=== PATIENT | female | born 1950 | race Caucasian/White ===

== ENCOUNTER → 2016-09-21 | Outpatient (CLI) | payer BC ==
[~2016-09-21] MED LIST: CLB/200 PO
--- NOTE | 2016-09-21 10:15 | DIAGNOSTIC IMAGING REPORT ---
ULTRASOUND ABDOMINAL WALL CLINICAL HISTORY: Right lower quadrant and umbilical pain. Clinical concern for hernia. COMPARISON STUDY: Abdominal CT dated 05/11/2010. EYES: Real-time grayscale sonography of the right lower quadrant abdominal wall as well as the umbilical region is performed at the indicator site of interest. No hernia is identified. No hernia could be elicited by having the patient perform the Valsalva maneuver. No concerning mass lesion or fluid collection is identified in this region. IMPRESSION: There is no sonographic evidence of abdominal wall hernia at the site of interest as clinically queried. Electronically signed by: Scott Ortega M.D. 09/21/2016 10:12 AM Dictated Date/Time: 09/21/2016 10:11 AM
--- NOTE | 2016-09-21 10:15 | DIAGNOSTIC IMAGING REPORT ---
BILIARY ULTRASOUND CLINICAL HISTORY: Gallbladder polyp COMPARISON STUDY: 09/20/2015 FINDINGS: The pancreas appears sonographically normal. The liver appears sonographically normal. The gallbladder appears sonographically normal. No gallbladder polyps are visualized on today's study. There is no ductal dilatation. The common bile duct measures 3 mm. The right kidney reveals no evidence of hydronephrosis. There is a suspected duplex collecting system. IMPRESSION: Normal study. Electronically signed by: Abdulkadir Pittman M.D. 09/21/2016 10:13 AM Dictated Date/Time: 09/21/2016 10:11 AM
== END | disposition home or self-care (01) ==
LOC: C.ULTR 09:15
PROVIDERS: ATTEND Surgery
DX: K82.4 Cholesterolosis of gallbladder (principal); R10.31 Right lower quadrant pain; R10.33 Periumbilical pain

== ENCOUNTER → 2017-07-31 | Outpatient (CLI) | payer BC ==
--- NOTE | 2017-07-31 15:15 | MAMMOGRAPHY REPORT ---
BILATERAL DIGITAL SCREENING MAMMOGRAM TOMOSYNTHESIS WITH CAD: 07/31/2017 CLINICAL HISTORY: Routine screening. Patient has no complaints. TECHNIQUE: Breast tomosynthesis in addition to standard 2D mammography was performed. Current study was also evaluated with a Computer Aided Detection (CAD) system. COMPARISON: Comparison is made to exams dated: 05/26/2015 mammogram, 05/19/2010 ultrasound, 05/19/20 10 mammogram, 07/15/2001 mammogram, and 05/30/2004 mammogram - [facility]. BREAST COMPOSITION: There are scattered areas of fibroglandular density in both breasts. FINDINGS: The parenchymal pattern is unchanged. No developing mass, architectural distortion or clus ter of suspicious microcalcifications is seen in either breast. IMPRESSION: ACR BI-RADS CATEGORY 2: BENIGN There is no mammographic evidence of malignancy. A 1 year screening mammogram is recommended. The pa tient will receive written notification of the results. Approximately 10% of breast cancers are not detected with mammography. A negative mammographic report should not delay biopsy if a clinically suggestive mass is present. Ame Dow M.D. ay/:07/31/2017 09:12:35 Academic Dean: Yasmine GRAHAMR, M, [facility] letter sent: Normal 1/2 BI-RADS Code: ACR BI-RADS Category 2: Benign
== END | disposition home or self-care (01) ==
LOC: C.MAMM 08:32
PROVIDERS: ATTEND Family Medicine
DX: Z12.31 Encounter for screening mammogram for malignant neoplasm of breast (principal)

== ENCOUNTER 2021-07-26 22:43 | Observation (INO) ==
[2021-07-26] MEDS ORDERED: STAT IV Infusion **Titration per Protocol STA (23:21)
[2021-07-26] MEDS ORDERED: dilTIAZem HCl 5 MG/ML 5 ML VIAL IV STA (23:21)
[2021-07-26 23:29] LABS: Basophils # (auto) 0.02 K/uL (0-0.2); Basophils % (auto) 0.3 %; Eosinophils # (auto) 0.25 K/uL (0-0.5); Eosinophils % (auto) 3.5 %; Hematocrit (blood only) 43.5 % (37-47); Hemoglobin 14.1 g/dL (12.0-16.0); Immature Granulocytes # (auto) 0.01 K/uL (0.00-0.02); Immature Granulocytes % (auto) 0.1 %; Lymphocytes # (auto) 2.85 K/uL (1.2-3.4); Lymphocytes % (auto) 40.3 %; Mean Corpuscular Hemoglobin 32.7 pg (25-34); Mean Corpuscular Hgb Conc 32.4 g/dL (32-36); Mean Corpuscular Volume 100.9 fL (80-100); Mean Platelet Volume 9.8 fL (7.4-10.4); Monocytes # (auto) 0.68 K/uL (0.11-0.59); Monocytes % (auto) 9.6 %; Neutrophils # (auto) 3.27 K/uL (1.4-6.5); Neutrophils % (auto) 46.2 %; Platelet Count 161 K/uL (130-400); RDW Coefficient of Variation 13.3 % (11.5-14.5); RDW Standard Deviation 49.8 fL (36.4-46.3); Red Blood Count 4.31 M/uL (4.2-5.4); White Blood Count 7.08 K/uL (4.8-10.8)
[2021-07-26] MEDS ORDERED: dilTIAZem HCL 125 MG in DEXTROSE 5% 100 ML IV SCH (23:30)
[2021-07-26] MEDS ORDERED: ASPIRIN 81 MG CHEW PO STA (23:33)
[2021-07-26] MEDS ORDERED: MAGNESIUM SULFATE / D5W 1 GM/100 ML BAG IV SCH (23:33)
--- NOTE | 2021-07-26 23:37 | Emergency Department Note ---
Impression & Plan Atrial fibrillation with rapid ventricular response, Cognitive impairment, Chest pressure ED Provider Note Provider: Darian Connor MD DATE OF SERVICE: 07/26/2021 CHIEF COMPLAINT: Chest pressure, irregular heart rate HISTORY OF PRESENT ILLNESS: Patient is a 71-year-old female history of cognitive impairment and hyperlipidemia presenting here today brought by her development this evening an hour or 2 prior to arrival of some chest pressure. Has been noted her blood pressure was normal at home as was her pulse ox but her heart rate was irregular and quite fast. Patient and both deny any history of irregular heart rate or atrial fibrillation. Patient reportedly normally has somewhat slow heart rate in the 50s. Patient is not on any significant blood pressure medication by report. Patient denies any chest pain or pressure now and states it resolved upon arriving here. Patient denies any falls or trauma. She denies any recent illnesses or fevers. REVIEW OF SYSTEMS: A total of 10 review of systems was obtained and negative except as stated above in the HPI. PAST MEDICAL HISTORY: As noted above MEDICATIONS: Reviewed home medications SOCIAL HISTORY: Lives at home with PHYSICAL EXAM: GENERAL: alert and oriented in no acute distress on stretcher Head: normocephalic and atraumatic EYES: No injection, discharge or icterus. NECK: Trachea midline. ENT: Mucous membranes pink and moist. LUNGS: Airway patent. No retractions. Breath sounds clear with good air entry bilaterally. HEART: Tachycardic irregular irregular rate and rhythm. No chest wall tenderness ABDOMEN: Soft and non-tender, without guarding or rebound. SKIN: Acyanotic, warm, dry, without rashes EXTREMITIES: Without swelling, tenderness or deformity NEUROLOGICAL: No focal deficits. No aphasia. No facial droop or slurred speech. Ambulatory. EK bpm atrial fibrillation with rapid ventricular response. Some inferior and lateral slight ST depression. No acute ST segment elevation noted. QTc 335 but stable be estimated. Compared to previous available from the beginning of the month no longer bradycardic and now with what appears to be atrial fibrillation CONTINUOUS CARDIAC MONITORING: was ordered and showed a heart rate of 110s-200s bpm in atrial fibrillation Patient's laboratory studies and imaging reviewed. Differential includes Premature contractions, electrolyte abnormality, cardiac dysrhythmia, thyroid dysfunction, pulmonary embolism, infection, gastr ointestinal, as well as other pathologies. IMPRESSION/MEDICAL DECISION MAKING: Patient was off chest pressure. No significant cardiac history. Patient with what appears to be new onset rapid atrial fibrillation. Some lateral and inferior ST depression changes likely demand related due to her rate. Given some diltiazem and diltiazem drip started. Aspirin given. Magnesium ordered. Basic labs electrolytes and thyroid function ordered. Chest x-ray completed although low suspicion for pulmonary pathology at this time. Patient not hypoxic. Patient resting comfortably in bed even with a significantly fast heart rate. No evidence of heart failure at this time. Discussed with patient findings. Discussed need for further care here at the hospital. Hospitalist contacted. Patient with increasing dose of Cardizem drip with some difficulty with rate control. DIAGNOSIS: Rapid atrial fibrillation, chest pressure DISPOSITION: Hospitalist will evaluate Patient was agreeable with this plan. Critical Care I have personally spent 31 minutes of critical care time in the direct management of this patient. This includes bedside care, interpretation of diagnostic studies, and testing, discussion with consultants, patient, and family members, and other required patient management activities. These 31 minutes is in excess of all separately billable procedures. Past Med/Surg History Medical History Acid reflux ? DX OF, EXPERIENCES FREQUENT NAUSEA - PCP MONITORS Balance problem EVAL WITH [facility]/CLARE CONNOR JUN 08 2020 - CURRENT PT FOR - NEXT DONALD SCHEDULED FOR JUN 2021 Fatty liver ? - HX 2 ULTRASOUNDS - ONE WAS TOLD FATTY LIVER AND OTHER WAS NOT Gall bladder disease HX GALLSTONES & RESOLVED Hypotension CHRONIC Surgical History H/O elbow surgery RIGHT History of colonoscopy History of repair of rectocele History of tubal ligation S/P hysterectomy HX Family History Grandfather (Paternal) Diabetes Father Diabetes Angina pectoris, unspecified Myocardial infarction Mother Arthritis Social History Smoking Status: Never smoker Hx Alcohol Use: No Preferred Language: Guatemalan Communication Ability: Effective Visual Impairment: No Limitations Hearing Ability: Normal Rug Hooker Required: No Beliefs That Will Affect Care: None Current Living Situation: Spouse Feels Safe at Home: Yes Assistive Devices: Glasses Allergies Allergies Allergy/AdvReac Type Severity Reaction Status Date / Time cat dander Allergy Unknown upper resp Verified 07/27/21 00:27 symptoms dog dander Allergy Unknown upper resp Verified 07/27/21 00:27 symptoms fluconazole Allergy Unknown PT NOT Verified 07/27/21 00:27 SURE IF ALLERGIC- ? Rash, headaches grass pollen Allergy Unknown upper resp Verified 07/27/21 00:27 symptoms house dust Allergy Unknown upper resp Verified 07/27/21 00:27 symptoms Iodinated Contrast Media Allergy Unknown PT REPORTS Verified 07/27/21 00:27 [Iodinated Contrast- Oral ? IODINE and IV Dye] ALLERGY - Hives - SEE NOTES pollen extracts Allergy Unknown coughing Verified 07/27/21 00:27 tree and shrub pollen Allergy Unknown upper resp Verified 07/27/21 00:27 symptoms METHIALATE Allergy Unknown SKIN BURN Uncoded 07/27/21 00:27 (TYPE OF MECURCROME) SHOT FOR PENUMONIA INFECTION AdvReac Unknown NAUSEA - Uncoded 07/27/21 00:27 SEE NOTES Home Meds Home Medications Medication Instructions Recorded Confirmed conjugated estrogens 0.625 mg/gram 0.625 mg VAGINAL 2XWK 05/31/20 07/27/21 vaginal cream (Premarin) fluticasone propionate 50 1 spray INTRANASAL UD PRN 05/31/20 07/27/21 mcg/actuation nasal spray,suspension (Flonase Allergy Relief) docusate sodium 100 mg capsule 100 mg PO DAILY 06/08/21 07/27/21 (Stool Softener) atorvastatin 10 mg tablet 10 mg PO HS 07/27/21 07/27/21 Results & Data (ED) Vital Signs Vital Signs - 24 hr 07/26/21 22:48 07/26/21 23:16 07/26/21 23:21 Temperature 36.8 C Temperature Source Temporal Artery Scan Pulse Rate 116 H 167 H Pulse Rate [Apical] Pulse Rate from SpO2 Sensor 109 H Pulse Rhythm Respiratory Rate 18 7 L 16 Respiratory Effort / Characteristics Non-Labored Spontaneous Respiratory Depth Normal Respiratory Pattern Regular Blood Pressure 157/125 H 132/73 106/67 Blood Pressure [Right Arm] Blood Pressure Mean 135 92 80 Blood Pressure Mean [Right Arm] Pulse Oximetry 98 87 L Oxygen Delivery Method Room Air Sepsis Recent Fever Within 48 Hours No Sepsis New/Unexplained Change in Mental Status N/A Sepsis Action Taken by Nursing No Action Required 07/26/21 23:22 07/26/21 23:23 07/26/21 23:30 Temperature Temperature Source Pulse Rate 158 H 166 H Pulse Rate [Apical] 162 H Pulse Rate from SpO2 Sensor 91 H Pulse Rhythm Regular Respiratory Rate 20 20 15 Respiratory Effort / Characteristics Respiratory Depth Respiratory Pattern Blood Pressure 125/76 Blood Pressure [Right Arm] 106/67 Blood Pressure Mean 92 Blood Pressure Mean [Right Arm] 80 Pulse Oximetry 98 98 98 Oxygen Delivery Method Room Air Room Air Sepsis Recent Fever Within 48 Hours Sepsis New/Unexplained Change in Mental Status Sepsis Action Taken by Nursing 07/26/21 23:47 07/26/21 23:48 07/26/21 23:50 Temperature Temperature Source Pulse Rate 145 H 114 H 150 H Pulse Rate [Apical] Pulse Rate from SpO2 Sensor 67 95 H 112 H Pulse Rhythm Respiratory Rate 16 21 17 Respiratory Effort / Characteristics Respiratory Depth Respiratory Pattern Blood Pressure 108/68 Blood Pressure [Right Arm] Blood Pressure Mean 81 Blood Pressure Mean [Right Arm] Pulse Oximetry 96 97 97 Oxygen Delivery Method Sepsis Recent Fever Within 48 Hours Sepsis New/Unexplained Change in Mental Status Sepsis Action Taken by Nursing 07/27/21 00:00 07/27/21 00:10 07/27/21 00:15 Temperature Temperature Source Pulse Rate 153 H 136 H 166 H Pulse Rate [Apical] Pulse Rate from SpO2 Sensor 85 102 H 70 Pulse Rhythm Respiratory Rate 17 23 18 Respiratory Effort / Characteristics Respiratory Depth Respiratory Pattern Blood Pressure 127/70 132/80 Blood Pressure [Right Arm] Blood Pressure Mean 89 97 Blood Pressure Mean [Right Arm] Pulse Oximetry 98 92 97 Oxygen Delivery Method Sepsis Recent Fever Within 48 Hours Sepsis New/Unexplained Change in Mental Status Sepsis Action Taken by Nursing 07/27/21 00:20 Temperature Temperature Source Pulse Rate 146 H Pulse Rate [Apical] Pulse Rate from SpO2 Sensor 73 Pulse Rhythm Respiratory Rate 15 Respiratory Effort / Characteristics Respiratory Depth Respiratory Pattern Blood Pressure Blood Pressure [Right Arm] Blood Pressure Mean Blood Pressure Mean [Right Arm] Pulse Oximetry 97 Oxygen Delivery Method Sepsis Recent Fever Within 48 Hours Sepsis New/Unexplained Change in Mental Status Sepsis Action Taken by Nursing Laboratory Data Result diagrams: 07/26/21 23:10 07/26/21 23:10 Lab Results 07/26/21 07/26/21 07/26/21 Range/Units 23:10 23:10 23:10 WBC 7.08 (4.8-10.8) K/uL RBC 4.31 (4.2-5.4) M/uL Hgb 14.1 (12.0-16.0) g/dL Hct 43.5 (37-47) % MCV 100.9 H (80-100) fL MCH 32.7 (25-34) pg MCHC 32.4 (32-36) g/dL RDW Std Deviation 49.8 H (36.4-46.3) fL RDW Coeff of Frandy 13.3 (11.5-14.5) % Plt Count 161 (130-400) K/uL MPV 9.8 (7.4-10.4) fL Immature Gran % (Auto) 0.1 % Neut % (Auto) 46.2 % Lymph % (Auto) 40.3 % [place] % (Auto) 9.6 % Eos % (Auto) 3.5 % Baso % (Auto) 0.3 % Neut # (Auto) 3.27 (1.4-6.5) K/uL Lymph # (Auto) 2.85 (1.2-3.4) K/uL [place] # (Auto) 0.68 H (0.11-0.59) K/uL Eos # (Auto) 0.25 (0-0.5) K/uL Baso # (Auto) 0.02 (0-0.2) K/uL Immature Gran # (Auto) 0.01 (0.00-0.02) K/uL PT 10.2 (9.0-12.0) Seconds INR 1.0 (0.9-1.1) APTT 25.9 (21.0-31.0) Seconds PTT Ratio 1.0 Sodium 141 (136-145) mmol/L Potassium 3.7 (3.5-5.1) mmol/L Chloride 108 H (98-107) mmol/L Carbon Dioxide 25 (21-32) mmol/L Anion Gap 8 (3-11) BUN 21 (6-23) mg/dl Creatinine 0.95 (0.6-1.2) mg/dl Est Cr Clr Drug Dosing 49.4 ml/min Est GFR ( Amer) 68.9 ml/min Est GFR (Non-Af Amer) 59.4 ml/min BUN/Creatinine Ratio 22.1 H (10-20) Glucose 112 H (70-99(Fasting)) mg/dl Calcium 10.0 (8.5-10.1) mg/dl Magnesium 1.9 (1.7-2.4) mg/dl Total Bilirubin 0.4 (0.2-1.0) mg/dl AST 20 (13-39) U/L ALT 16 (7-52) U/L Alkaline Phosphatase 71 (34-104) U/L Troponin I < 0.03 (0-0.04) ng/ml Total Protein 6.7 (6.0-8.3) gm/dl Albumin 4.1 (3.4-5.0) gm/dl Globulin 2.6 (2.5-4.0) gm/dl Albumin/Globulin Ratio 1.6 (0.9-2) TSH (0.300-4.500) uIu/ml SARS-CoV-2, RNA, NAAT (NEGATIVE) 07/26/21 07/27/21 Range/Units 23:10 00:12 WBC (4.8-10.8) K/uL RBC (4.2-5.4) M/uL Hgb (12.0-16.0) g/dL Hct (37-47) % MCV (80-100) fL MCH (25-34) pg MCHC (32-36) g/dL RDW Std Deviation (36.4-46.3) fL RDW Coeff of Frandy (11.5-14.5) % Plt Count (130-400) K/uL MPV (7.4-10.4) fL Immature Gran % (Auto) % Neut % (Auto) % Lymph % (Auto) % [place] % (Auto) % Eos % (Auto) % Baso % (Auto) % Neut # (Auto) (1.4-6.5) K/uL Lymph # (Auto) (1.2-3.4) K/uL [place] # (Auto) (0.11-0.59) K/uL Eos # (Auto) (0-0.5) K/uL Baso # (Auto) (0-0.2) K/uL Immature Gran # (Auto) (0.00-0.02) K/uL PT (9.0-12.0) Seconds INR (0.9-1.1) APTT (21.0-31.0) Seconds PTT Ratio Sodium (136-145) mmol/L Potassium (3.5-5.1) mmol/L Chloride (98-107) mmol/L Carbon Dioxide (21-32) mmol/L Anion Gap (3-11) BUN (6-23) mg/dl Creatinine (0.6-1.2) mg/dl Est Cr Clr Drug Dosing ml/min Est GFR ( Amer) ml/min Est GFR (Non-Af Amer) ml/min BUN/Creatinine Ratio (10-20) Glucose (70-99(Fasting)) mg/dl Calcium (8.5-10.1) mg/dl Magnesium (1.7-2.4) mg/dl Total Bilirubin (0.2-1.0) mg/dl AST (13-39) U/L ALT (7-52) U/L Alkaline Phosphatase (34-104) U/L Troponin I (0-0.04) ng/ml Total Protein (6.0-8.3) gm/dl Albumin (3.4-5.0) gm/dl Globulin (2.5-4.0) gm/dl Albumin/Globulin Ratio (0.9-2) TSH 3.894 (0.300-4.500) uIu/ml SARS-CoV-2, RNA, NAAT NEGATIVE (NEGATIVE) Administered Medications Diltiazem HCl 125 mg/ Dextrose 125 mls @ 15 mls/hr IV .[id number] [facility]; Protocol Stop: 08/25/21 23:29 Last Titration: 07/27/21 00:33 Dose: 15 mg/hr, 15 mls/hr Documented by: [id number] Cosigned by: [id number] Titration: 07/27/21 00:13 Dose: 10 mg/hr, 10 mls/hr Documented by: [id number] Cosigned by: [id number] Admin: 07/26/21 23:49 Dose: 5 mg/hr, 5 mls/hr Documented by: [id number] Cosigned by: [id number] Discontinued Medications Aspirin (Aspirin 81 Mg Chew) 324 mg PO NOW STA Stop: 07/26/21 23:34 Last Admin: 07/26/21 23:49 Dose: 324 mg Documented by: [id number] Diltiazem HCl (Diltiazem Hcl 5 Mg/Ml 5 Ml Vial) 10 mg IV NOW STA Stop: 07/26/21 23:22 Last Admin: 07/26/21 23:28 Dose: 10 mg Documented by: [id number] Cosigned by: [id number] Magnesium Sulfate/Dextrose (Magnesium Sulfate / D5w) 1 gm in 100 mls @ 400 mls/hr IV Q15M NELSON Stop: 07/26/21 23:47 Last Infusion: 07/27/21 00:04 Dose: 0 mls/hr Documented by: [id number] Admin: 07/26/21 23:49 Dose: 400 mls/hr Documented by: [id number] Miscellaneous (Stat Iv Infusion Titration Per Protocol) 1 ea N/A NOW STA Stop: 07/26/21 23:22 Last Admin: 07/26/21 23:31 Dose: 1 ea Documented by: [id number] Discharge Plan Visit Data Chief Complaint: Hypertension Stated Complaint: BP HIGH, AFIB ED Provider: Darian Connor Discharge Problem: Atrial fibrillation with rapid ventricular response, Cognitive impairment, Chest pressure Patient Disposition: Being Evaluated by Hospitalist Forms Stand Alone Forms: [facility] Prescriptions Prescriptions: No Action fluticasone propionate [Flonase Allergy Relief] 50 mcg/actuation spray,suspension 1 spray intranasal UD PRN (Reason: ALLERGIES) RF: 0 Premarin 0.625 mg/gram cream 0.625 mg vaginal 2XWK RF: 0 docusate sodium [Stool Softener] 100 mg capsule 100 mg PO DAILY RF: 0 atorvastatin 10 mg tablet 10 mg PO HS RF: 0 Referrals Referrals: Meaghan Collins DO [Primary Care Provider] -
[2021-07-26 23:39] LABS: Partial Thromboplastin Time 25.9 Seconds (21.0-31.0); Prothrombin Time 10.2 Seconds (9.0-12.0)
[2021-07-27 00:16] LABS: Troponin I < 0.03 ng/ml (0-0.04)
[2021-07-27 00:20] LABS: Alanine Aminotransferase 16 U/L (7-52); Albumin Globulin Ratio 1.6 (0.9-2); Albumin Level 4.1 gm/dl (3.4-5.0); Alkaline Phosphatase 71 U/L (34-104); Anion Gap 8 (3-11); Aspartate Aminotransferase 20 U/L (13-39); BUN Creatinine Ratio 22.1 (10-20); Bilirubin,Total 0.4 mg/dl (0.2-1.0); Blood Urea Nitrogen 21 mg/dl (6-23); Carbon Dioxide 25 mmol/L (21-32); Chloride 108 mmol/L (98-107); Creatinine Clr Calc Pharmacy 49.4 ml/min; Est GFR (African American) 68.9 ml/min; Est GFR (Non-African American) 59.4 ml/min; Globulin 2.6 gm/dl (2.5-4.0); Glucose 112 mg/dl (70-99(Fasting)); Magnesium 1.9 mg/dl (1.7-2.4); Potassium 3.7 mmol/L (3.5-5.1); Sodium 141 mmol/L (136-145); Total Protein 6.7 gm/dl (6.0-8.3)
--- NOTE | 2021-07-27 00:52 | History & Physical Report ---
Date of Service July 27, 2021 Assessment & Plan (1) Atrial fibrillation with rapid ventricular response: Plan: 71yo female with a history of cognitive impairment and HLD presents with chest pressure, found to be in atrial fibrillation with RVR upon arrival. New-onset atrial fibrillation with rapid ventricular response BP stable, no hypoxia, afebrile; EKG: atrial fibrillation with RVR with lateral and inferior ST depression, likely demand-related, will repeat EKG when HR improves In ED, given ASA 324mg x1, diltiazem IV 10mg x1, and then started on diltiazem gtt per protocol Episode of hypotension noted around 01:30 - diltiazem gtt rate decreased per protocol Electrolytes, magnesium, TSH wnl, CXR unremarkable Initial troponin negative, repeat q6h x2 Admit to PCU telemetry [id number]: 3; will start weight-based lovenox TTE ordered Hyperlipidemia Repeat lipid profile ordered Continue home atorvastatin FEN: heart-healthy diet Code status: full code DVT ppx: lovenox as above PT/OT: ordered Dispo: PCU telemetry History of Present Illness Primary Care Provider: Meaghan Collins DO 71yo female with a history of cognitive impairment and HLD presents with chest pressure which began about two hours prior to arrival to the ED. Patient had her BP checked at home by her , who noted that patient's BP was normal, but found that her HR was fast and irregular. Patient's chest pressure is centrally located and does not radiate. No overt pain. Denies current or recent fever, chills, SOB, cough, abdominal pain, nausea, vomiting, diarrhea, headache, vision changes, lightheadedness, weakness, or other symptoms. Patient denies a known personal or family history of atrial fibrillation. Allergies Allergy/AdvReac Type Severity Reaction Status Date / Time cat dander Allergy Unknown upper resp Verified 07/27/21 00:27 symptoms dog dander Allergy Unknown upper resp Verified 07/27/21 00:27 symptoms fluconazole Allergy Unknown PT NOT Verified 07/27/21 00:27 SURE IF ALLERGIC- ? Rash, headaches grass pollen Allergy Unknown upper resp Verified 07/27/21 00:27 symptoms house dust Allergy Unknown upper resp Verified 07/27/21 00:27 symptoms Iodinated Contrast Media Allergy Unknown PT REPORTS Verified 07/27/21 00:27 [Iodinated Contrast- Oral ? IODINE and IV Dye] ALLERGY - Hives - SEE NOTES pollen extracts Allergy Unknown coughing Verified 07/27/21 00:27 tree and shrub pollen Allergy Unknown upper resp Verified 07/27/21 00:27 symptoms METHIALATE Allergy Unknown SKIN BURN Uncoded 07/27/21 00:27 (TYPE OF MECURCROME) SHOT FOR PENUMONIA INFECTION AdvReac Unknown NAUSEA - Uncoded 07/27/21 00:27 SEE NOTES Home Medications Medication Instructions Recorded Confirmed Type conjugated estrogens 0.625 mg/gram 0.625 mg VAGINAL 2XWK 05/31/20 07/27/21 History vaginal cream (Premarin) fluticasone propionate 50 1 spray INTRANASAL UD PRN 05/31/20 07/27/21 History mcg/actuation nasal spray,suspension (Flonase Allergy Relief) docusate sodium 100 mg capsule 100 mg PO DAILY 06/08/21 07/27/21 History (Stool Softener) atorvastatin 10 mg tablet 10 mg PO HS 07/27/21 07/27/21 History Past Med/Surg History Medical History Acid reflux ? DX OF, EXPERIENCES FREQUENT NAUSEA - PCP MONITORS Balance problem EVAL WITH [facility] CONNOR JUN 08 2020 - CURRENT PT FOR - NEXT DONALD SCHEDULED FOR JUN 2021 Fatty liver ? - HX 2 ULTRASOUNDS - ONE WAS TOLD FATTY LIVER AND OTHER WAS NOT Gall bladder disease HX GALLSTONES & RESOLVED Hypotension CHRONIC Surgical History H/O elbow surgery RIGHT History of colonoscopy History of repair of rectocele History of tubal ligation S/P hysterectomy HX Family History Grandfather (Paternal) Diabetes Father Diabetes Angina pectoris, unspecified Myocardial infarction Mother Arthritis Social History Smoking Status: Never smoker Hx Alcohol Use: No Hx Substance Use: No Preferred Language: Bengali Communication Ability: Effective Visual Impairment: No Limitations Hearing Ability: Normal Youth Ministry Director Required: No Beliefs That Will Affect Care: None Current Living Situation: Spouse Other Information That Helps Us Care for You: No Feels Safe at Home: Yes Safety Concerns: Feels Safe At This Time Assistive Devices: Glasses Review of Systems Review of Systems: See HPI Physical Exam Physical Exam: Constitutional: well-appearing, no acute distress HEENT: NCAT, no conjunctival injection CV: tachycardic, irregularly irregular rhythm, no murmur appreciated, extremities well-perfused, no LE edema Resp: CTABL, no wheezes/rales/rhonchi appreciated, no increased work of breathing GI: soft, nondistended, nontender, BS normoactive MSK: no gross deformities appreciated Skin: warm, dry, no rash appreciated Neuro: alert, oriented, no focal neurologic deficit appreciated Results & Data Results & Data ([facility]) Vital Signs (Past 12 Hours) Vital Signs Temp Pulse Pulse Resp BP BP Pulse Ox 07/27/21 00:20 146 H 15 97 07/27/21 00:15 166 H 18 132/80 97 07/27/21 00:10 136 H 23 92 07/27/21 00:00 153 H 17 127/70 98 07/26/21 23:50 150 H 17 97 07/26/21 23:48 114 H 21 108/68 97 07/26/21 23:47 145 H 16 96 07/26/21 23:30 166 H 15 125/76 98 07/26/21 23:23 158 H 20 98 07/26/21 23:22 162 H 20 106/67 98 07/26/21 23:21 167 H 16 106/67 87 L 07/26/21 23:16 7 L 132/73 07/26/21 22:48 36.8 C 116 H 18 157/125 H 98 Supervising Physician Co-Signing Physician Notes Patient seen and examined, chart reviewed, case discussed with Dr. Whyte and I agree with the assessment and plan as documented above. In brief, patient is a 71yo female with history of HLP presenting with chest pressure that started appx 2 hours prior to arrival. Found to be in AF with RVR on arrival, rate of 191 noted on EKG. Labs unremarkable CXR with no infiltrate or evidence of failure EKG initially with diffuse ST depressions. Patient converted to NSR - EKG from 02:50 with rate of 63bpm, resolution of ST depressions On exam she is resting comfortably, NAD S1/S2, regular Lungs - CTA Abd - soft, NT/ND Ext - warm, well perfused, no clubbing/cyanosis or edema Neuro - nonfocal Assessment/Plan -Continue cardizem gtt initiated in ER -Trend troponin -Check 2D echo -Anticoagulation -Remainder as above Resident Activity Tracking Resident Involvement: Resident Care Provided and [facility] Coverage Note Care Provided: Adult Hospital Medicine
[2021-07-27] MEDS ORDERED: ACETAMINOPHEN 325 MG TAB PO PRN (02:43)
[2021-07-27] MEDS ORDERED: ENOXAPARIN 80 MG/0.8 ML SYR SQ SCH (04:00)
--- NOTE | 2021-07-27 04:21 | Billing Data ---
Date of Service July 27, 2021 Coding Level of Care Code 50356 Initial Inpt Care Lvl 2
[2021-07-27 06:06] LABS: BUN Creatinine Ratio 21.9 (10-20); Calcium 8.9 mg/dl (8.5-10.1); Chol HDL Ratio 3.7 (0-5); Creatinine Clr Calc Pharmacy 58.8 ml/min; Est GFR (African American) 94.7 ml/min; Est GFR (Non-African American) 81.7 ml/min; Potassium 3.7 mmol/L (3.5-5.1); Troponin I 0.04 ng/ml (0-0.04)
--- NOTE | 2021-07-27 07:10 | XRay Report ---
XR chest 1V portable CLINICAL HISTORY: Dysrhythmia/cp COMPARISON STUDY: Chest radiograph April 14, 2013. FINDINGS: Lung volumes are normal. Lungs are clear. There is no pneumothorax or pleural effusion. Mil d cardiomegaly is noted. Mediastinal contours are normal. There is no evidence for pulmonary edema. IMPRESSION: No acute cardiopulmonary findings. ACT 112: Negative or not required by law. Electronically signed by: Tyshawn Ng M.D. 07/27/2021 7:09 AM
[2021-07-27] MEDS ORDERED: DOCUSATE SODIUM 100 MG CAP PO SCH (09:00)
--- NOTE | 2021-07-27 11:56 | Electrocardiogram Report ---
Test Reason : Blood Pressure : / mmHG Vent. Rate : 191 BPM Atrial Rate : 220 BPM P-R Int : 000 ms QRS Dur : 070 ms QT Int : 188 ms P-R-T Axes : 000 006 223 degrees QTc Int : 335 ms Atrial fibrillation with rapid ventricular response with premature ventricular or aberrantly conducte d complexes Low voltage QRS Marked ST abnormality, possible inferior subendocardial injury Abnormal ECG Confirmed by Donald Helm ([id number]) on 07/27/2021 11:55:50 AM Referred By: REFERRED SELF Confirmed By:Jose Helm
--- NOTE | 2021-07-27 12:43 | XCELERA ---
[id number]
--- NOTE | 2021-07-27 14:11 | Cardiology Consultation ---
Date of Consultation July 27, 2021 Assessment & Plan (1) Atrial fibrillation with rapid ventricular response: 1. Atrial fibrillation: The patient's symptoms were related to her atrial fibrillation and associated high ventricular rates. Her symptoms resolved with resolution of the arrhythmia. She is not appear to have significant risk factors for atrial fibrillation outside of her age. Her echocardiogram was remarkably normal. No significant valvular disease. No left atrial enla rgement. She does not endorse symptoms of significant sleep apnea. She is not taking a bisphosphonates. She is not obese. She does not use alcohol. She has not been sick recently. While she will certainly have additional episodes of atrial fibrillation over time, she could have an extended period without arrhythmia. I think this is more likely than not based on her otherwise normal echocardiogram lack of risk factors. However, she does have an increased risk of stroke based on her age and gender. I did recommend institution of anticoagulant therapy. She has normal renal function and she would be a good candidate for Eliquis or Xarelto. For for wound also be a reasonable option. Do not think she benefits from starting medicine like metoprolol or diltiazem. She has some baseline bradycardia. These medications would certainly not stop additional episodes of atrial fibrillation and she could have a prolonged time. Without recurrence. She would likely be a good candidate for a pill in the pocket approach with flecainide. I think she could be safely discharged today with a recommendation for anticoagulation She should follow-up in the outpatient setting for additional recommendations. History of Present Illness Reason for Consultation: Atrial fibrillation Requesting Physician: Lexi Attending Physician: Darrell Elliott History of Present Illness The patient is a 71-year-old woman without a known history of cardiac disease who presented with atrial fibrillation and rapid ventricular response. This seems that the patient was getting ready for bed around 11:00 p.m. last evening when she began to notice some left upper chest discomfort. She did not describe this specifically is pain but more of an uncomfortable and pressure type sens ation. Her checked her heart rate with a cardio mobile device and she appeared to have atrial fibrillation. Based on this information she presented to the emergency room for evaluation. She cannot recall exactly when her symptoms resolved but they did resolve after admission. She had some very mild associated dizziness but no associated breathing difficulty. Currently feeling well. She is generally an active individual who does not have much in the way of limitations. She takes care of a large property. She has not report limiting dyspnea. She does not have chest pressure at other times. She has some element of unsteadiness that she attributes to Meniere's disease. She did not describe orthopnea or paroxysmal nocturnal dyspnea. She is not known to snore by report. She does have some element of daytime somnolence. No lower extremity edema. No sense of palpitations. No history of syncope. Allergies Allergy/AdvReac Type Severity Reaction Status Date / Time cat dander Allergy Unknown upper resp Verified 07/27/21 00:27 symptoms dog dander Allergy Unknown upper resp Verified 07/27/21 00:27 symptoms fluconazole Allergy Unknown PT NOT Verified 07/27/21 00:27 SURE IF ALLERGIC- ? Rash, headaches grass pollen Allergy Unknown upper resp Verified 07/27/21 00:27 symptoms house dust Allergy Unknown upper resp Verified 07/27/21 00:27 symptoms Iodinated Contrast Media Allergy Unknown PT REPORTS Verified 07/27/21 00:27 [Iodinated Contrast- Oral ? IODINE and IV Dye] ALLERGY - Hives - SEE NOTES pollen extracts Allergy Unknown coughing Verified 07/27/21 00:27 tree and shrub pollen Allergy Unknown upper resp Verified 07/27/21 00:27 symptoms METHIALATE Allergy Unknown SKIN BURN Uncoded 07/27/21 00:27 (TYPE OF MECURCROME) SHOT FOR PENUMONIA INFECTION AdvReac Unknown NAUSEA - Uncoded 07/27/21 00:27 SEE NOTES Home Medications Medication Instructions Recorded Confirmed Type conjugated estrogens 0.625 mg/gram 0.625 mg VAGINAL 2XWK 05/31/20 07/27/21 History vaginal cream (Premarin) fluticasone propionate 50 1 spray INTRANASAL UD PRN 05/31/20 07/27/21 History mcg/actuation nasal spray,suspension (Flonase Allergy Relief) docusate sodium 100 mg capsule 100 mg PO DAILY 06/08/21 07/27/21 History (Stool Softener) atorvastatin 10 mg tablet 10 mg PO HS 07/27/21 07/27/21 History Patient History Medical History Acid reflux ? DX OF, EXPERIENCES FREQUENT NAUSEA - PCP MONITORS Balance problem EVAL WITH [facility] JUN 08 2020 - CURRENT PT FOR - NEXT DONALD SCHEDULED FOR JUN 2021 Fatty liver ? - HX 2 ULTRASOUNDS - ONE WAS TOLD FATTY LIVER AND OTHER WAS NOT Gall bladder disease HX GALLSTONES & RESOLVED Hypotension CHRONIC Surgical History H/O elbow surgery RIGHT History of colonoscopy History of repair of rectocele History of tubal ligation S/P hysterectomy HX Family History Grandfather (Paternal) Diabetes Father Diabetes Angina pectoris, unspecified Myocardial infarction Mother Arthritis Social History Smoking Status: Never smoker Hx Alcohol Use: No Hx Substance Use: No Preferred Language: Qatari Communication Ability: Effective Visual Impairment: No Limitations Hearing Ability: Normal Tubing Assembler Required: No Beliefs That Will Affect Care: None Current Living Situation: Spouse Other Information That Helps Us Care for You: No Feels Safe at Home: Yes Safety Concerns: Feels Safe At This Time Assistive Devices: None Review of Systems Review of Systems: Per HPI Physical Exam Physical Exam: She is alert and oriented x3. Mood affect appear normal. She answered all questions appropriately. HEENT: Sclerae are anicteric. Pupils are equal and reactive to light and accommodation. Extraocular movements were intact. Neuro: Cranial nerves intact Lungs: Lungs are clear to auscultation bilaterally. There are no rales wheezes or rhonchi. She has normal respiratory effort without use of accessory muscles. There is normal pulmonary excursion. Cardiac: The rhythm was regular. S1 and S2 were normal. There are no murmurs on examination. The PMI was not markedly displaced on palpation. Extremities: Patient has bilateral radial pulses that are equal in intensity. There is no evidence cyanosis or clubbing. There was no evidence of significant peripheral edema bilaterally. Skin: There are no rashes noted on examination today. Results & Data ([facility]) Vital Signs (Past 12 Hours) Vital Signs Temp Pulse Pulse Resp BP BP Pulse Ox 07/27/21 07:52 36.8 C 55 L 19 111/59 L 96 07/27/21 04:30 57 L 16 101/60 95 07/27/21 02:43 36.6 C 70 22 102/61 97 07/27/21 02:25 157 H 16 112/48 L 96 07/27/21 02:05 135 H 16 122/56 L 98 Pulse Ox 07/27/21 07:52 07/27/21 04:30 07/27/21 02:43 97 07/27/21 02:25 07/27/21 02:05 Laboratory Results Abnormal Lab Results 07/26/21 07/26/21 07/26/21 23:10 23:10 23:10 WBC 7.08 RBC 4.31 Hgb 14.1 Hct 43.5 MCV 100.9 H MCH 32.7 MCHC 32.4 RDW Std Deviation 49.8 H RDW Coeff of Frandy 13.3 Plt Count 161 MPV 9.8 Immature Gran % (Auto) 0.1 Neut % (Auto) 46.2 Lymph % (Auto) 40.3 Shelby % (Auto) 9.6 Eos % (Auto) 3.5 Baso % (Auto) 0.3 Neut # (Auto) 3.27 Lymph # (Auto) 2.85 Shelby # (Auto) 0.68 H Eos # (Auto) 0.25 Baso # (Auto) 0.02 Immature Gran # (Auto) 0.01 PT 10.2 INR 1.0 APTT 25.9 PTT Ratio 1.0 Sodium 141 Potassium 3.7 Chloride 108 H Carbon Dioxide 25 Anion Gap 8 BUN 21 Creatinine 0.95 Est Cr Clr Drug Dosing 49.4 Est GFR ( Amer) 68.9 Est GFR (Non-Af Amer) 59.4 BUN/Creatinine Ratio 22.1 H Glucose 112 H Calcium 10.0 Magnesium 1.9 Total Bilirubin 0.4 AST 20 ALT 16 Alkaline Phosphatase 71 Troponin I < 0.03 Total Protein 6.7 Albumin 4.1 Globulin 2.6 Albumin/Globulin Ratio 1.6 Triglycerides Cholesterol LDL Cholesterol, Calc VLDL Cholesterol, Calc HDL Cholesterol Cholesterol/HDL Ratio TSH Nasal Screen MRSA (PCR) Hepatitis C Ab Screen SARS-CoV-2, RNA, NAAT 07/26/21 07/27/21 07/27/21 23:10 00:12 02:45 WBC RBC Hgb Hct MCV MCH MCHC RDW Std Deviation RDW Coeff of Frandy Plt Count MPV Immature Gran % (Auto) Neut % (Auto) Lymph % (Auto) Shelby % (Auto) Eos % (Auto) Baso % (Auto) Neut # (Auto) Lymph # (Auto) Shelby # (Auto) Eos # (Auto) Baso # (Auto) Immature Gran # (Auto) PT INR APTT PTT Ratio Sodium Potassium Chloride Carbon Dioxide Anion Gap BUN Creatinine Est Cr Clr Drug Dosing Est GFR ( Amer) Est GFR (Non-Af Amer) BUN/Creatinine Ratio Glucose Calcium Magnesium Total Bilirubin AST ALT Alkaline Phosphatase Troponin I Total Protein Albumin Globulin Albumin/Globulin Ratio Triglycerides Cholesterol LDL Cholesterol, Calc VLDL Cholesterol, Calc HDL Cholesterol Cholesterol/HDL Ratio TSH 3.894 Nasal Screen MRSA (PCR) Negative Hepatitis C Ab Screen SARS-CoV-2, RNA, NAAT NEGATIVE 07/27/21 07/27/21 07/27/21 05:29 05:29 12:12 WBC RBC Hgb Hct MCV MCH MCHC RDW Std Deviation RDW Coeff of Frandy Plt Count MPV Immature Gran % (Auto) Neut % (Auto) Lymph % (Auto) Shelby % (Auto) Eos % (Auto) Baso % (Auto) Neut # (Auto) Lymph # (Auto) Shelby # (Auto) Eos # (Auto) Baso # (Auto) Immature Gran # (Auto) PT INR APTT PTT Ratio Sodium 142 Potassium 3.7 Chloride 113 H Carbon Dioxide 24 Anion Gap 5 BUN 16 Creatinine 0.73 Est Cr Clr Drug Dosing 58.8 Est GFR ( Amer) 94.7 Est GFR (Non-Af Amer) 81.7 BUN/Creatinine Ratio 21.9 H Glucose 102 H Calcium 8.9 Magnesium Total Bilirubin AST ALT Alkaline Phosphatase Troponin I 0.04 0.06 H* Total Protein Albumin Globulin Albumin/Globulin Ratio Triglycerides 76 Cholesterol 141 LDL Cholesterol, Calc 88 VLDL Cholesterol, Calc 15 HDL Cholesterol 38 Cholesterol/HDL Ratio 3.7 TSH Nasal Screen MRSA (PCR) Hepatitis C Ab Screen Neg SARS-CoV-2, RNA, NAAT Diagnostic Findings Echocardiogram performed today revealed preserved LV systolic function with ejection fraction of 60%. No significant valvular heart disease. Normal echocardiogram. PG Care Time/CCT Total # of Minutes Spent Total Time Spent with Patient: Total time spent is greater than 50% in coordination of care (as documented) at patient's floor/unit and/or counseling patient: Coding Level of Care Code 74652 Initial Inpt Care Lvl 3 Diagnoses Atrial fibrillation with rapid ventricular response I48.91
[2021-07-27] MEDS ORDERED: ATORVASTATIN 10 MG TAB PO SCH (21:00)
--- NOTE | 2021-07-31 07:46 | Discharge Summary ---
Date of Service July 27, 2021 Admission HPI Per Admitting Provider 71yo female with a history of cognitive impairment and HLD presents with chest pressure which began about two hours prior to arrival to the ED. Patient had her BP checked at home by her , who noted that patient's BP was normal, but found that her HR was fast and irregular. Patient's chest pressure is centrally located and does not radiate. No overt pain. Denies current or recent fever, chills, SOB, cough, abdominal pain, nausea, vomiting, diarrhea, headache, vision changes, lightheadedness, weakness, or other symptoms. Patient denies a known personal or family history of atrial fibrillation. Principal Diagnosis atrial fibrillation with RVR Discharge Exam Constitutional WD/WN, vitals as above Eyes PERRL, conjunctivae normal, anicteric sclerae ENMT external ear and nose normal, oropharynx normal Neck trachea midline, no thyromegaly Respiratory normal respiratory effort, lungs clear to auscultation Cardiovascular RRR, no murmur, no edema Gastrointestinal (Abdomen) normal bowel sounds, soft, nontender, no hepatosplenomegaly Musculoskeletal Head/Neck/Chest: + head abnormal to inspection Skin no rashes, warm and dry Neurologic PERRL, EOMI, accommodation nl, no face palsy, no dysarthria Psychiatric A+Ox3, euthymic affect Lymphatic no cervical or axillary lymphadenopathy Discharge Data Allergies Allergy/AdvReac Type Severity Reaction Status Date / Time cat dander Allergy Unknown upper resp Verified 07/27/21 00:27 symptoms dog dander Allergy Unknown upper resp Verified 07/27/21 00:27 symptoms fluconazole Allergy Unknown PT NOT Verified 07/27/21 00:27 SURE IF ALLERGIC- ? Rash, headaches grass pollen Allergy Unknown upper resp Verified 07/27/21 00:27 symptoms house dust Allergy Unknown upper resp Verified 07/27/21 00:27 symptoms Iodinated Contrast Media Allergy Unknown PT REPORTS Verified 07/27/21 00:27 [Iodinated Contrast- Oral ? IODINE and IV Dye] ALLERGY - Hives - SEE NOTES pollen extracts Allergy Unknown coughing Verified 07/27/21 00:27 tree and shrub pollen Allergy Unknown upper resp Verified 07/27/21 00:27 symptoms METHIALATE Allergy Unknown SKIN BURN Uncoded 07/27/21 00:27 (TYPE OF MECURCROME) SHOT FOR PENUMONIA INFECTION AdvReac Unknown NAUSEA - Uncoded 07/27/21 00:27 SEE NOTES Consultations 07/27/21 00:24 ED Decision to Admit Stat 07/27/21 07:57 Consult Cardiology Routine Hospital Course (1) Atrial fibrillation with rapid ventricular response: 71yo female with a history of cognitive impairment and HLD presents with chest pressure, found to be in atrial fibrillation with RVR upon arrival. New-onset atrial fibrillation with rapid ventricular response BP stable, no hypoxia, afebrile; EKG: atrial fibrillation with RVR with lateral and inferior ST depression, likely demand-related, will repeat EKG when HR improves In ED, given ASA 324mg x1, diltiazem IV 10mg x1, and then started on diltiazem gtt per protocol Episode of hypotension noted around 01:30 - diltiazem gtt rate decreased per protocol Electrolytes, magnesium, TSH wnl, CXR unremarkable Initial troponin negative, repeat q6h x2 Admit to PCU telemetry [id number]: 3; will start weight-based lovenox TTE ordered Later in the hospital day Cardio was consulted. Appreciate input from cardio: Arrythmia resolved. Will recommend anticoagulation due to age, gender. Will start eliquis. Add flecainide as a pill in pocket approach.. due to baseline bradycardia, will not institute BB or CCB. will followup with cardio as an outpatient. Hyperlipidemia Continue home atorvastatin Total Time Total Time Spent Total Time Spent (In Minutes): 32 Discharge Plan Discharge Items Patient Disposition: Home - Self-Care Reason For Visit: NEW ONSET A-FIB Discharge Diagnosis: You were found to have paroxysmal atrial fibrillation. Thankfully your Heart rhythm improved on its own. Activity: Resume your previous activity Non-emergency contact: Primary Care Provider Call non-emergency contact if: you have any medication questions Follow-up/Referrals: Meaghan Collins DO [Primary Care Provider] - Diet: Heart Healthy Addtl Attending Provider Instructions: Your symptoms were related to her atrial fibrillation and associated high ventricular rates. They resolved once your rhythm improved. However, you have an increased risk of stroke based on her age and gender. I recommend you start a blood thinning medicine.You will be a good candidate She would likely be a good candidate for a pill in the pocket approach with flecainide. If you develop rapid heart rate, please take one tablet of the flecainide and then seek medical attention. Cardiology will schedule a followup appointment. Pending Studies at Discharge: No Stand-Alone Forms: My [facility], Smoking Cessation Medications and DC Order Prescriptions: New Eliquis 5 mg tablet 5 mg PO BID Qty: 60 RF: 0 flecainide 150 mg tablet 300 mg PO ONCE PRN (Reason: rapid heart rate) Qty: 2 RF: 0 Continued fluticasone propionate [Flonase Allergy Relief] 50 mcg/actuation spray,suspension 1 spray intranasal UD PRN (Reason: ALLERGIES) RF: 0 Premarin 0.625 mg/gram cream 0.625 mg vaginal 2XWK RF: 0 docusate sodium [Stool Softener] 100 mg capsule 100 mg PO DAILY RF: 0 atorvastatin 10 mg tablet 10 mg PO HS RF: 0 Discharge Orders: Discharge Order (Routine); Ordered 07/27/21 Ordered By: Darrell Elliott Admission Data Admit Date/Time: 07/27/21 01:49 Attending Provider: Darrell Elliott Admit Provider: Orion Whyte Primary Care Provider: Meaghan Collins Other Providers: Margaret Polk ; Donald Helm Other Interventions: Discharge Summary Assessment (RN) Last Done: 07/27/21 16:24 Coding Level of Care Code OBSERV/HOSP SAME DATE LVL 3 Diagnoses Atrial fibrillation with rapid ventricular response I48.91
== END 2021-07-27 16:59 | disposition home or self-care (01) ==
LOC: ED 22:43 → INTOOBSV 07-27 01:49 → SUATTDRO 07-27 01:49 → 1E 07-27 01:49

== ENCOUNTER 2022-04-28 03:20 | Observation (INO) ==
--- NOTE | 2022-04-28 03:51 | Emergency Department Note ---
History of Present Illness General Chief complaint: Tachycardia Stated complaint: FAST HEART RATE UP OVER 200 Time Seen by Provider: 04/28/22 03:35 History of Present Illness This is a 72-year-old female that presents to the emergency department via private vehicle accompanied by with complaints of "fast heart rate over 200". The patient has a history of A. fib with RVR. Her current treatment plan is Eliquis and then as needed flecainide 300 mg p.o. x1. Patient notes that she was doing well however earlier this morning around 2:30 AM she was laying in bed when she noted that her heart "felt funny". No chest pain or shortness of breath. Her heart rate was checked then with the Kardia device. notes that the heart rate at that time was over 200 and they then administered flecainide around 2:45 AM. Heart rate then upon arrival here notes was into the 80s. Patient denies any symptoms at this time and feels well. Home Medications Medication Instructions Recorded Confirmed Type docusate sodium 100 mg capsule 100 mg PO DAILY 06/08/21 04/17/22 History (Stool Softener) atorvastatin 10 mg tablet 10 mg PO HS 07/27/21 04/17/22 History apixaban 5 mg tablet (Eliquis) 5 mg PO BID #60 tabs 08/15/21 04/17/22 Rx cholecalciferol (vitamin D3) 50 50 mcg PO DAILY 01/19/22 04/17/22 History mcg (2,000 unit) capsule cyanocobalamin (vitamin B-12) 1,000 mcg PO DAILY 01/19/22 04/17/22 History 1,000 mcg capsule memantine 5 mg tablet 5 mg PO DAILY #30 tabs 01/19/22 04/17/22 Rx flecainide 150 mg tablet 150 mg PO ONCE PRN rapid heart 04/28/22 04/17/22 Rx rate #1 tab flecainide 50 mg tablet 50 mg PO Q12H #60 tabs 04/28/22 Rx Allergies Allergy/AdvReac Type Severity Reaction Status Date / Time cat dander Allergy Unknown upper resp Verified 04/17/22 14:14 symptoms dog dander Allergy Unknown upper resp Verified 04/17/22 14:14 symptoms fluconazole Allergy Unknown PT NOT Verified 04/17/22 14:14 SURE IF ALLERGIC- ? Rash, headaches grass pollen Allergy Unknown upper resp Verified 04/17/22 14:14 symptoms house dust Allergy Unknown upper resp Verified 04/17/22 14:14 symptoms Iodinated Contrast Media Allergy Unknown PT REPORTS Verified 04/17/22 14:14 [Iodinated Contrast- Oral ? IODINE and IV Dye] ALLERGY - Hives - SEE NOTES pollen extracts Allergy Unknown coughing Verified 04/17/22 14:14 tree and shrub pollen Allergy Unknown upper resp Verified 04/17/22 14:14 symptoms METHIALATE Allergy Unknown SKIN BURN Uncoded 04/17/22 14:14 (TYPE OF MECURCROME) SHOT FOR PENUMONIA INFECTION AdvReac Unknown NAUSEA - Uncoded 04/17/22 14:14 SEE NOTES Past Med/Surg History Medical History Acid reflux ? DX OF, EXPERIENCES FREQUENT NAUSEA - PCP MONITORS Balance problem EVAL WITH [facility] JUN 08 2020 - CURRENT PT FOR - NEXT DONALD SCHEDULED FOR JUN 2021 Fatty liver ? - HX 2 ULTRASOUNDS - ONE WAS TOLD FATTY LIVER AND OTHER WAS NOT Gall bladder disease HX GALLSTONES & RESOLVED Gallbladder polyp Hypotension CHRONIC Sinus bradycardia Surgical History H/O elbow surgery RIGHT History of colonoscopy History of repair of rectocele History of tubal ligation S/P hysterectomy HX Family History Grandfather (Paternal) Diabetes Father Diabetes Angina pectoris, unspecified Myocardial infarction Mother Arthritis Social History Smoking Status: Never smoker Second Hand Exposure: No; Do You Dip or Chew Tobacco: No; Hx Alcohol Use: No Hx Substance Use: No Preferred Language: Malagasy Communication Ability: Effective Visual Impairment: No Limitations Hearing Ability: Normal Figure Clerk Required: No Beliefs That Will Affect Care: None Current Living Situation: Spouse Other Information That Helps Us Care for You: No Feels Safe at Home: Yes Safety Concerns: Feels Safe At This Time Assistive Devices: Glasses Review of Systems A total of 10 systems reviewed and were otherwise negative Physical Exam Vital Signs Vital Signs - 24 hr 04/28/22 03:22 04/28/22 03:51 04/28/22 03:51 Temperature 36.6 C Temperature Source Temporal Artery Scan Pulse Rate 82 Pulse Rate [Finger] Pulse Rhythm Regular Pulse Strength Normal Respiratory Rate 16 Respiratory Effort / Characteristics Non-Labored Spontaneous Respiratory Depth Normal Respiratory Pattern Regular Blood Pressure 111/66 Blood Pressure [Right Arm] Blood Pressure Mean 81 Blood Pressure Mean [Right Arm] Blood Pressure Position Sitting Pulse Oximetry 97 95 Oxygen Delivery Method Room Air Room Air Room Air Sepsis Recent Fever Within 48 Hours No Sepsis New/Unexplained Change in Mental Status No Sepsis Action Taken by Nursing No Action Required 04/28/22 04:36 Temperature Temperature Source Pulse Rate Pulse Rate [Finger] 90 Pulse Rhythm Pulse Strength Respiratory Rate 18 Respiratory Effort / Characteristics Non-Labored Spontaneous Respiratory Depth Normal Respiratory Pattern Regular Blood Pressure Blood Pressure [Right Arm] 95/62 L Blood Pressure Mean Blood Pressure Mean [Right Arm] 73 Blood Pressure Position Pulse Oximetry 97 Oxygen Delivery Method Sepsis Recent Fever Within 48 Hours Sepsis New/Unexplained Change in Mental Status Sepsis Action Taken by Nursing VITAL SIGNS - Vital signs and nursing notes were reviewed. Stable and afebrile. GENERAL -72-year-old female appearing her stated age who is in no acute di stress. Communicates well with provider and answers questions appropriately. SKIN - Without rashes. No meningeal or petechial rash. HEAD - NC/AT. EYES - PERRL with EOMI bilaterally. Sclera anicteric. EARS - No deformities of external structures noted on gross examination bilaterally. NOSE - Midline and without cyanosis. No epistaxis or purulent drainage noted. MOUTH/OROPHARYNX - Without perioral cyanosis. NECK - Neck with FROM. No nuchal rigidity. LUNGS - Chest wall symmetric without accessory muscle use, intercostals retractions, or central cyanosis. Normal vesicular breath sounds CTA B/L. No wheezes, rales, or rhonchi appreciated. CARDIAC - RRR with S1/S2. No murmur, rubs, or gallops appreciated. EXTREMITIES - No clubbing or peripheral cyanosis. +5/5 strength noted in UE/LE bilaterally. NEUROLOGIC - Cranial nerves II through XII grossly intact. PSYCH - A&O, and cooperates fully with examiner. Pt is very pleasant and interacts well with examiner. Course Administered Medications Discontinued Medications Apixaban (Apixaban 5 Mg Tablet) 5 mg PO BID NELSON Stop: 05/28/22 08:59 Last Admin: 04/28/22 08:09 Dose: 5 mg Documented By: RONAN Cyanocobalamin (Cyanocobalamin (B-12) 500 Mcg Tablet) 1,000 mcg PO DAILY NELSON Stop: 05/28/22 08:59 Last Admin: 04/28/22 08:10 Dose: 1,000 mcg Documented By: RONAN Docusate Sodium (Docusate Sodium 100 Mg Cap) 100 mg PO DAILY NELSON Stop: 05/28/22 08:59 Last Admin: 04/28/22 08:09 Dose: 100 mg Documented By: RONAN Potassium Chloride (K Parker / Wtr) 10 meq in 100 mls @ 100 mls/hr IV Q1H NELSON Stop: 04/28/22 09:14 Last Infusion: 04/28/22 14:05 Dose: 0 mls/hr Documented By: Admin: 04/28/22 12:05 Dose: 50 mls/hr Documented By: Infusion: 04/28/22 12:00 Dose: 0 mls/hr Documented By: Admin: 04/28/22 10:00 Dose: 50 mls/hr Documented By: Infusion: 04/28/22 09:49 Dose: 0 mls/hr Documented By: Admin: 04/28/22 07:49 Dose: 50 mls/hr Documented By: Infusion: 04/28/22 07:27 Dose: 50 mls/hr Documented By: Infusion: 04/28/22 05:30 Dose: 50 mls/hr Documented By: Admin: 04/28/22 05:28 Dose: 100 mls/hr Documented By: DUKE Memantine (Memantine Hcl 5 Mg Tab) 5 mg PO DAILY NELSON Stop: 05/28/22 08:59 Last Admin: 04/28/22 08:09 Dose: 5 mg Documented By: RONAN Medical Decision Making Laboratory Data Result diagrams: 04/28/22 03:45 04/28/22 03:45 Lab Results 04/28/22 04/28/22 04/28/22 Range/Units 03:45 03:45 03:45 WBC 5.78 (4.8-10.8) K/ul RBC 4.41 (3.93-5.22) M/uL Hgb 14.5 (12.0-16.0) g/dl Hct 44.6 (34.1-44.9) % MCV 101.1 H (80.0-100.0) fL MCH 32.9 (25.0-34.0) pg MCHC 32.5 (32.0-36.0) g/dL RDW Std Deviation 49.2 H (36.4-46.3) fL RDW Coeff of Frandy 13.1 (11.5-14.5) % Plt Count 168 (130-400) K/uL MPV 9.0 L (9.4-12.3) fL Immature Gran % (Auto) 0.2 % Neut % (Auto) 51.1 % Lymph % (Auto) 35.8 % Meeker % (Auto) 7.6 % Eos % (Auto) 4.8 % Baso % (Auto) 0.5 % Neut # (Auto) 2.95 (1.4-6.5) K/uL Lymph # (Auto) 2.07 (1.2-3.4) K/uL Meeker # (Auto) 0.44 (0.24-0.82) K/uL Eos # (Auto) 0.28 (0-0.50) K/uL Baso # (Auto) 0.03 (0-0.2) K/uL Immature Gran # (Auto) 0.01 (0.00-0.02) K/uL PT 10.8 (9.0-12.0) Seconds INR 1.0 (0.9-1.1) APTT 27.9 (21.0-31.0) Seconds PTT Ratio 1.0 Sodium 143 (136-145) mmol/L Potassium 3.3 L (3.5-5.1) mmol/L Chloride 107 (98-107) mmol/L Carbon Dioxide 29 (21-32) mmol/L Anion Gap 7 (3-11) BUN 18 (6-23) mg/dl Creatinine 0.70 (0.6-1.2) mg/dl Est Cr Clr Drug Dosing 71.4 ml/min Est GFR ( Amer) 98.9 ml/min Est GFR (Non-Af Amer) 85.4 ml/min BUN/Creatinine Ratio 25.7 H (10-20) Glucose 116 H (70-99(Fasting)) mg/dl Calcium 10.2 H (8.5-10.1) mg/dl Magnesium 2.0 (1.7-2.4) mg/dl Total Bilirubin 0.5 (0.2-1.0) mg/dl AST 28 (13-39) U/L ALT 21 (7-52) U/L Alkaline Phosphatase 76 (34-104) U/L Troponin I High Sens 6.7 (0-14) pg/ml Total Protein 7.2 (6.0-8.3) gm/dl Albumin 4.6 (3.4-5.0) gm/dl Globulin 2.6 (2.5-4.0) gm/dl Albumin/Globulin Ratio 1.8 (0.9-2) SARS-CoV-2, RNA, NAAT (NEGATIVE) 04/28/22 Range/Units 04:06 WBC (4.8-10.8) K/ul RBC (3.93-5.22) M/uL Hgb (12.0-16.0) g/dl Hct (34.1-44.9) % MCV (80.0-100.0) fL MCH (25.0-34.0) pg MCHC (32.0-36.0) g/dL RDW Std Deviation (36.4-46.3) fL RDW Coeff of Frandy (11.5-14.5) % Plt Count (130-400) K/uL MPV (9.4-12.3) fL Immature Gran % (Auto) % Neut % (Auto) % Lymph % (Auto) % Meeker % (Auto) % Eos % (Auto) % Baso % (Auto) % Neut # (Auto) (1.4-6.5) K/uL Lymph # (Auto) (1.2-3.4) K/uL Meeker # (Auto) (0.24-0.82) K/uL Eos # (Auto) (0-0.50) K/uL Baso # (Auto) (0-0.2) K/uL Immature Gran # (Auto) (0.00-0.02) K/uL PT (9.0-12.0) Seconds INR (0.9-1.1) APTT (21.0-31.0) Seconds PTT Ratio Sodium (136-145) mmol/L Potassium (3.5-5.1) mmol/L Chloride (98-107) mmol/L Carbon Dioxide (21-32) mmol/L Anion Gap (3-11) BUN (6-23) mg/dl Creatinine (0.6-1.2) mg/dl Est Cr Clr Drug Dosing ml/min Est GFR ( Amer) ml/min Est GFR (Non-Af Amer) ml/min BUN/Creatinine Ratio (10-20) Glucose (70-99(Fasting)) mg/dl Calcium (8.5-10.1) mg/dl Magnesium (1.7-2.4) mg/dl Total Bilirubin (0.2-1.0) mg/dl AST (13-39) U/L ALT (7-52) U/L Alkaline Phosphatase (34-104) U/L Troponin I High Sens (0-14) pg/ml Total Protein (6.0-8.3) gm/dl Albumin (3.4-5.0) gm/dl Globulin (2.5-4.0) gm/dl Albumin/Globulin Ratio (0.9-2) SARS-CoV-2, RNA, NAAT NEGATIVE (NEGATIVE) MDM Narrative Patient was seen and evaluated as above in room A11. Review was performed of nursing notes and vital signs. I did review pertinent previous visits and patient history. After obtaining a thorough history and physical examination the above work up was performed. Patient presents to us today for evaluation of an episode of elevated heart rate in the setting of feeling "funny" in her chest. She clinically appears well at this time and nontoxic. She did take flecainide prior to arrival and now notes resolution of symptoms. Options of care were discussed with the patient. IV access was established. Labs were drawn. EKG was obtained on arrival reveals what appears to be rhythm at a rate of 99 bpm and QTC 495 and QRS of 98. PVCs noted. Compared to previous EKG that was sinus rhythm and without ST changes the patient does appear now to have new ST depressions. There is no ST elevation. Troponin initially was negative. Her labs reveal no leukocytosis or concerning anemia. No emergent metabolic disturbance. Mild hypokalemia 3.3. Mild hypercalcemia 10.2. COVID testing negative. Chest x-ray was obtained and per my interpretation reveals cardiomegaly without acute process. At this time with the patient having EKG changes I do believe that she would benefit from further evaluation and management in the inpatient setting. Patient and amenable to plan of care. Case discussed with the hospitalist. Please refer to further documentation regarding her stay. Case was discussed with the attending physician. An order was placed for continuous cardiac monitoring. The monitor shows a rate of 72 with sinus rhythm. GCS: 15 In the evaluation and treatment of this patient the following differential diagnoses were entertained: ACS, [place], PE, dissection, arrhythmia, electrolyte disturbance, pneumothorax, pneumonia, among others. Impression & Plan Heart palpitations, Acute electrocardiogram changes Discharge Plan Visit Data Chief Complaint: Tachycardia Stated Complaint: FAST HEART RATE UP OVER 200 ED Provider: Jessica Oropeza ED Midlevel Provider: Mihir Yoder Discharge Problem: Heart palpitations, Acute electrocardiogram changes Patient Disposition: Admitted As Inpatient Condition: Good Discharge Instructions Interventions: ED Discharge Assessment Last Done: 04/28/22 05:37
[2022-04-28 04:02] LABS: Basophils # (auto) 0.03 K/uL (0-0.2); Basophils % (auto) 0.5 %; Eosinophils # (auto) 0.28 K/uL (0-0.50); Eosinophils % (auto) 4.8 %; Hematocrit (blood only) 44.6 % (34.1-44.9); Hemoglobin 14.5 g/dl (12.0-16.0); Immature Granulocytes # (auto) 0.01 K/uL (0.00-0.02); Immature Granulocytes % (auto) 0.2 %; Lymphocytes # (auto) 2.07 K/uL (1.2-3.4); Lymphocytes % (auto) 35.8 %; Mean Corpuscular Hemoglobin 32.9 pg (25.0-34.0); Mean Corpuscular Hgb Conc 32.5 g/dL (32.0-36.0); Mean Corpuscular Volume 101.1 fL (80.0-100.0); Monocytes # (auto) 0.44 K/uL (0.24-0.82); Monocytes % (auto) 7.6 %; Neutrophils # (auto) 2.95 K/uL (1.4-6.5); Neutrophils % (auto) 51.1 %; Platelet Count 168 K/uL (130-400); RDW Coefficient of Variation 13.1 % (11.5-14.5); RDW Standard Deviation 49.2 fL (36.4-46.3); Red Blood Count 4.41 M/uL (3.93-5.22); White Blood Count 5.78 K/ul (4.8-10.8)
[2022-04-28 04:13] LABS: Partial Thromboplastin Time 27.9 Seconds (21.0-31.0); Prothrombin Time 10.8 Seconds (9.0-12.0)
--- NOTE | 2022-04-28 04:30 | History & Physical Report ---
Date of Service April 28, 2022 Assessment & Plan (1) Mobitz (type) I (Wenckebach's) atrioventricular block: Plan: EKG showed Mobitz I 2nd degree AV block (Wenckebach) with PACs/PVCs as well as incomplete RBBB. Also with mild inferior ST depressions. And with QTc 495ms. - suspect EKG changes are due to Flecainide - admit for telemetry monitoring - consult Cardiology (patient follows with Dr. Helm for a-fib) - initial Troponin negative - will check again now (2) Atrial fibrillation with rapid ventricular response: Plan: Reportedly was tachycardic to "over 200" prior to presentation, which may have represented a-fib with RVR. However here patient is in sinus rhythm with 2nd degree Mobitz I as stated above. - continue Eliquis - hold Flecainide - consult Cardiology as stated above - appreciate assistance in rate control options (3) Hypokalemia: Plan: K 3.3 - repleted with k-rider x4. (4) Dyslipidemia: Plan: Continue home Atorvastatin (5) Vitamin B12 deficiency: Plan: Continue daily Vitamin B12 supplementation (6) Cognitive impairment: Plan: Continue home Memantine (7) Constipation: Plan: Continue home Docusate Plan FEN/GI: regular diet DVT Prophylaxis: Eliquis Code Status: full code Disposition: med/tele History of Present Illness Chief Complaint: tachycardia Primary Care Provider: Meaghan Collins DO Darlin Courtney is a 72yo female with PMHx significant for paroxysmal a-fib (on Eliquis and Flecainide 300mg PRN), HLD and vitamin B12 deficiency, who presented to [facility] ED on 04/28 for concern of a "fast heart rate over 200". Patient was lying in bed when she started to have palpitations. She checked her HR and was over 200 so took Flecainide 300mg PO x1 at ~0245 this morning. Her symptoms subsequently resolved. Denies chest pain, SOB, syncope, near-syncope, diaphoresis. Denies recent illnesses. Denies fever/chills. Feels well overall. In the ED the patient's HR was in the 80s and she was hemodynamically stable on room air. EKG showed Mobitz I 2nd degree AV block (Wenckebach) with PACs/PVCs as well as incomplete RBBB. Also with mild inferior ST depressions. And with QTc 495ms. Of note patient's last EKG on 02/04/2022 also shows incomplete RBBB as well as 1st degree AV block. Labs significant for K 3.3. Otherwise CBC/CMP/hsTroponin all WNL. CXR without acute cardiopulmonary process. COVID-19 negative. Allergies Allergy/AdvReac Type Severity Reaction Status Date / Time cat dander Allergy Unknown upper resp Verified 04/17/22 14:14 symptoms dog dander Allergy Unknown upper resp Verified 04/17/22 14:14 symptoms fluconazole Allergy Unknown PT NOT Verified 04/17/22 14:14 SURE IF ALLERGIC- ? Rash, headaches grass pollen Allergy Unknown upper resp Verified 04/17/22 14:14 symptoms house dust Allergy Unknown upper resp Verified 04/17/22 14:14 symptoms Iodinated Contrast Media Allergy Unknown PT REPORTS Verified 04/17/22 14:14 [Iodinated Contrast- Oral ? IODINE and IV Dye] ALLERGY - Hives - SEE NOTES pollen extracts Allergy Unknown coughing Verified 04/17/22 14:14 tree and shrub pollen Allergy Unknown upper resp Verified 04/17/22 14:14 symptoms METHIALATE Allergy Unknown SKIN BURN Uncoded 04/17/22 14:14 (TYPE OF MECURCROME) SHOT FOR PENUMONIA INFECTION AdvReac Unknown NAUSEA - Uncoded 04/17/22 14:14 SEE NOTES Home Medications Medication Instructions Recorded Confirmed Type docusate sodium 100 mg capsule 100 mg PO DAILY 06/08/21 04/17/22 History (Stool Softener) atorvastatin 10 mg tablet 10 mg PO HS 07/27/21 04/17/22 History apixaban 5 mg tablet (Eliquis) 5 mg PO BID #60 tabs 08/15/21 04/17/22 Rx cholecalciferol (vitamin D3) 50 50 mcg PO DAILY 01/19/22 04/17/22 History mcg (2,000 unit) capsule cyanocobalamin (vitamin B-12) 1,000 mcg PO DAILY 01/19/22 04/17/22 History 1,000 mcg capsule memantine 5 mg tablet 5 mg PO DAILY #30 tabs 01/19/22 04/17/22 Rx flecainide 150 mg tablet 150 mg PO ONCE PRN rapid heart 11/25/22 11/14/22 Rx rate #1 tab flecainide 50 mg tablet 50 mg PO Q12H #60 tabs 04/28/22 Rx Past Med/Surg History Medical History Acid reflux ? DX OF, EXPERIENCES FREQUENT NAUSEA - PCP MONITORS Balance problem EVAL WITH [facility] GEETA JUN 08 2020 - CURRENT PT FOR - NEXT DONALD SCHEDULED FOR JUN 2021 Fatty liver ? - HX 2 ULTRASOUNDS - ONE WAS TOLD FATTY LIVER AND OTHER WAS NOT Gall bladder disease HX GALLSTONES & RESOLVED Gallbladder polyp Hypotension CHRONIC Sinus bradycardia Surgical History H/O elbow surgery RIGHT History of colonoscopy History of repair of rectocele History of tubal ligation S/P hysterectomy HX Family History Grandfather (Paternal) Diabetes Father Diabetes Angina pectoris, unspecified Myocardial infarction Mother Arthritis Social History Smoking Status: Never smoker Second Hand Exposure: No; Do You Dip or Chew Tobacco: No; Hx Alcohol Use: No Hx Substance Use: No Preferred Language: Indonesian Communication Ability: Effective Visual Impairment: No Limitations Hearing Ability: Normal 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 NAD. Cooperative. HEENT: Atraumatic, normocephalic. Pulm: CTAB A&P. -wheezes, -rales, -rhonchi. Symmetrical chest rise. No increase work of breathing. No respiratory distress. Cardiac: irregular rhythm, regular rate, -mrg. Radial pulses intact and symmetrical. No LE edema. Abdominal: soft, non-tender, non-distended, BS x 4 Skin: warm, dry, no rash Results & Data Results & Data ([facility]) Vital Signs (Past 12 Hours) Vital Signs Temp Pulse Resp BP Pulse Ox O2 Del Method 04/28/22 03:51 95 Room Air 11/25/22 03:51 Room Air 04/28/22 03:22 36.6 C 82 16 111/66 97 Room Air Supervising Physician Co-Signing Physician Notes Attending addendum: I have physically seen this patient, have supervised the medical residents activities, and agree with the H&P unless as otherwise noted. Assessment and Plan: Atrial fibrillation with RVR/Mobitz type I, Wenckebach, AV block- Patient took an extra dose of flecainide when her heart rate was increased at home, which resulted in improved heart rate, but likely also resulted in AV block The patient will be admitted to telemetry for serial cardiac enzymes, serial EKG's, cardiac rhythm monitoring and a 2-D echocardiogram with Dopplers. Consult cardiology Continue Eliquis Hold flecainide Optimize potassium and magnesium Remaining orders and notations as noted Resident Activity Tracking Resident Involvement: Resident Care Provided Care Provided: Adult Hospital Medicine
[2022-04-28 04:46] LABS: Albumin Globulin Ratio 1.8 (0.9-2); Albumin Level 4.6 gm/dl (3.4-5.0); BUN Creatinine Ratio 25.7 (10-20); Bilirubin,Total 0.5 mg/dl (0.2-1.0); Calcium 10.2 mg/dl (8.5-10.1); Creatinine Clr Calc Pharmacy 71.4 ml/min; Est GFR (African American) 98.9 ml/min; Est GFR (Non-African American) 85.4 ml/min; Globulin 2.6 gm/dl (2.5-4.0); Potassium 3.3 mmol/L (3.5-5.1); Total Protein 7.2 gm/dl (6.0-8.3); Troponin I High Sensitivity 6.7 pg/ml (0-14)
[2022-04-28] MEDS: POTASSIUM CHLORIDE / WTR 10 MEQ/100 ML PLCT IV SCH ×4 (05:28→12:05)
--- NOTE | 2022-04-28 05:34 | Emergency Department Note ---
ED Visit Note I was consulted by the Advanced Practice Provider. I saw the patient personally and performed a substantive portion of the visit. This includes aspects of the HPI, MDM, diagnostic interpretations, and disposition/plan. .
[2022-04-28] MEDS ORDERED: NITROGLYCERIN SL 0.4 MG/TAB TAB SL PRN (05:56)
--- NOTE | 2022-04-28 07:25 | XRay Report ---
SINGLE VIEW CHEST CLINICAL HISTORY: Atypical chest pain FINDINGS: An AP, portable, upright chest radiograph is compared to study dated 02/04/2022. The heart is mildly enlarged noting atherosclerotic calcification of the thoracic aorta. The pulmonary vasculatur e is noncongested. Chronic interstitial thickening similar to previous. There are scattered calcified granulomas and calcified hilar nodes. The lungs and pleural spaces are otherwise clear noting mild b ibasilar scarring/atelectasis. No pneumothorax is seen. The skeletal structures are osteopenic. The b rafael thorax is grossly intact. IMPRESSION: Cardiomegaly with no acute cardiopulmonary abnormality. ACT 112: Negative or not required by law. Electronically signed by: Scott Ortega M.D. 04/28/2022 7:24 AM
--- NOTE | 2022-04-28 07:57 | Hospitalist Progress Note ---
Date of Service April 28, 2022 Assessment & Plan (1) Mobitz (type) I (Wenckebach's) atrioventricular block: Plan: EKG showed Mobitz I 2nd degree AV block (Wenckebach) with PACs/PVCs as well as incomplete RBBB. Also with mild inferior ST depressions. And with QTc 495ms. - suspect EKG changes are due to Flecainide - admit for telemetry monitoring - consult Cardiology (patient follows with Dr. Helm for a-fib) - initial Troponin negative - will check again now (2) Atrial fibrillation with rapid ventricular response: Plan: Reportedly was tachycardic to "over 200" prior to presentation, which may have represented a-fib with RVR. However here patient is in sinus rhythm with 2nd degree Mobitz I as stated above. - continue Eliquis - hold Flecainide - consult Cardiology as stated above - appreciate assistance in rate control options (3) Hypokalemia: Plan: K 3.3 - repleted with k-rider x4. (4) Dyslipidemia: Plan: Continue home Atorvastatin (5) Vitamin B12 deficiency: Plan: Continue daily Vitamin B12 supplementation (6) Cognitive impairment: Plan: Continue home Memantine (7) Constipation: Plan: Continue home Docusate Plan FEN/GI: regular diet DVT Prophylaxis: Eliquis Code Status: full code Disposition: med/tele Admission and Anticipated Discharge Date Admission Date: April 28, 2022 Subjective Seen at bedside this morning. Physical Exam Physical Exam: General: A&Ox3. NAD. Cooperative. HEENT: Atraumatic, normocephalic. Pulm: CTAB A&P. -wheezes, -rales, -rhonchi. Symmetrical chest rise. No increase work of breathing. No respiratory distress. Cardiac: irregular rhythm, regular rate, -mrg. Radial pulses intact and symmetrical. No LE edema. Abdominal: soft, non-tender, non-distended, BS x 4 Skin: warm, dry, no rash Results & Data Results & Data ([facility]) Vital Signs (Past 12 Hours) Vital Signs Temp Pulse Pulse Resp BP BP Pulse Ox 04/28/22 07:45 36.6 C 66 18 105/66 98 04/28/22 06:32 36.4 C L 78 18 115/72 97 04/28/22 06:22 36.4 C L 78 18 115/72 97 04/28/22 04:36 90 18 95/62 L 97 04/28/22 03:51 95 04/28/22 03:51 04/28/22 03:22 36.6 C 82 16 111/66 97 O2 Del Method 04/28/22 07:45 Room Air 04/28/22 06:32 Room Air 04/28/22 06:22 Room Air 04/28/22 04:36 04/28/22 03:51 Room Air 04/28/22 03:51 Room Air 04/28/22 03:22 Room Air
--- NOTE | 2022-04-28 08:25 | Cardiology Consultation ---
Date of Consultation April 28, 2022 Assessment & Plan (1) Atrial flutter, paroxysmal: 72-year-old woman with paroxysmal atrial dysrhythmias who presents with atrial flutter less than 2 months after she was seen in the ER for atrial fibrillation, both times she returned to sinus after taking 300 mg of flecainide. As noted, she is chronically anticoagulated with apixaban. Minimal troponin elevation with no chest pain or ECG changes is likely due to supply/demand mismatch from tachycardia, this is best addressed by controlling her rate and/or rhythm. Given more frequent recurrence of her atrial dysrhythmia would recommend discharge on routine daily flecainide, start at 50 mg twice daily, could be titrated upward as an outpatient. She will need a new prescription, since her current flecainide "pill in the pocket" dose is 150 mg x 2 pills. She can continue to take an extra 150 mg flecainide dose if she has recurrent atrial fibrillation, but should take only 1 pill. Okay for discharge with follow up with Dr. Helm in 2 to 4 weeks. History of Present Illness Reason for Consultation: Magda after Flecainide, h/o a-fib Requesting Physician: Yesi Sandhu MD Attending Physician: Yesi Sandhu MD History of Present Illness 72-year-old woman with history of mild dementia, paroxysmal atrial fibrillation (flecainide/apixaban), and other medical problems who was admitted earlier today (04/28/2022) with subjective palpitations and ECG showing atrial flutter with variable AV block. Patient experienced subjective palpitations without chest pain, took 300 mg flecainide and reported to the emergency department. Around 7 AM this morning she reverted to sinus rhythm at 60 bpm. She was last seen in the emergency department February 2022 for similar presentation and also reverted to sinus rhythm after taking "pill in the pocket" flecainide. She is chronically anticoagulated with apixaban 5 mg twice daily. At the time of my evaluation, she was comfortable and had no somatic complaints. Allergies Allergy/AdvReac Type Severity Reaction Status Date / Time cat dander Allergy Unknown upper resp Verified 04/17/22 14:14 symptoms dog dander Allergy Unknown upper resp Verified 04/17/22 14:14 symptoms fluconazole Allergy Unknown PT NOT Verified 04/17/22 14:14 SURE IF ALLERGIC- ? Rash, headaches grass pollen Allergy Unknown upper resp Verified 04/17/22 14:14 symptoms house dust Allergy Unknown upper resp Verified 04/17/22 14:14 symptoms Iodinated Contrast Media Allergy Unknown PT REPORTS Verified 04/17/22 14:14 [Iodinated Contrast- Oral ? IODINE and IV Dye] ALLERGY - Hives - SEE NOTES pollen extracts Allergy Unknown coughing Verified 04/17/22 14:14 tree and shrub pollen Allergy Unknown upper resp Verified 04/17/22 14:14 symptoms METHIALATE Allergy Unknown SKIN BURN Uncoded 04/17/22 14:14 (TYPE OF MECURCROME) SHOT FOR PENUMONIA INFECTION AdvReac Unknown NAUSEA - Uncoded 04/17/22 14:14 SEE NOTES Home Medications Medication Instructions Recorded Confirmed Type docusate sodium 100 mg capsule 100 mg PO DAILY 06/08/21 04/17/22 History (Stool Softener) atorvastatin 10 mg tablet 10 mg PO HS 07/27/21 04/17/22 History apixaban 5 mg tablet (Eliquis) 5 mg PO BID #60 tabs 08/15/21 04/17/22 Rx flecainide 150 mg tablet 300 mg PO ONCE PRN rapid heart 10/04/21 04/17/22 Rx rate #2 tabs cholecalciferol (vitamin D3) 50 50 mcg PO DAILY 01/19/22 04/17/22 History mcg (2,000 unit) capsule cyanocobalamin (vitamin B-12) 1,000 mcg PO DAILY 01/19/22 04/17/22 History 1,000 mcg capsule memantine 5 mg tablet 5 mg PO DAILY #30 tabs 01/19/22 04/17/22 Rx Patient History Medical History Acid reflux ? DX OF, EXPERIENCES FREQUENT NAUSEA - PCP MONITORS Balance problem EVAL WITH [facility] JUN 08 2020 - CURRENT PT FOR - NEXT DONALD SCHEDULED FOR JUN 2021 Fatty liver ? - HX 2 ULTRASOUNDS - ONE WAS TOLD FATTY LIVER AND OTHER WAS NOT Gall bladder disease HX GALLSTONES & RESOLVED Gallbladder polyp Hypotension CHRONIC Sinus bradycardia Surgical History H/O elbow surgery RIGHT History of colonoscopy History of repair of rectocele History of tubal ligation S/P hysterectomy HX Family History Grandfather (Paternal) Diabetes Father Diabetes Angina pectoris, unspecified Myocardial infarction Mother Arthritis Social History Smoking Status: Never smoker Second Hand Exposure: No; Do You Dip or Chew Tobacco: No; Hx Alcohol Use: No Hx Substance Use: No Preferred Language: Guinean Communication Ability: Effective Visual Impairment: No Limitations Hearing Ability: Normal Legal Analyst Required: No Beliefs That Will Affect Care: None Current Living Situation: Spouse Other Information That Helps Us Care for You: No Feels Safe at Home: Yes Safety Concerns: Feels Safe At This Time Assistive Devices: Glasses Physical Exam Physical Exam: No distress. BP low normal. Pulse 60 bpm and regular. Skin: no ecchymoses or generalized lesions. HEENT: unremarkable. Neck: no JVD or carotid bruits. Lungs: clear. Cardiac: regular rhythm, normal S1 and S2, no obvious murmur or gallop. Abdomen: benign. Extremities: no edema, pulses intact. Neurologic: normal affect, answer simple questions appropriately, uncertain insight, grossly nonfocal. Results & Data ([facility]) Laboratory Results High-sensitivity troponin 6.7 rising to 13.3. Normal electrolytes, BUN 18, creatinine 0.7. Magnesium 2.0. Normal CBC Diagnostic Findings ECG shows atrial flutter with variable AV block and ventricular rate of 99 bpm (flutter waves best seen in lead III). Chest x-ray showed cardiomegaly with no acute process. Echocardiogram from July 2021 showed EF 55 to 60% with normal LV wall thickness and no significant valvular disease. PG Care Time/CCT Total # of Minutes Spent Total Time Spent with Patient: Total time spent is greater than 50% in coordination of care (as documented) at patient's floor/unit and/or counseling patient: Coding Level of Care Code 74420 Inpt Consult Level 4 Diagnoses Atrial flutter, paroxysmal I48.92
[2022-04-28] MEDS ORDERED: MEMANTINE HCL 5 MG TAB PO SCH (09:00)
[2022-04-28] MEDS ORDERED: CYANOCOBALAMIN (B-12) 500 MCG TABLET PO SCH (09:00)
[2022-04-28] MEDS ORDERED: DOCUSATE SODIUM 100 MG CAP PO SCH (09:00)
[2022-04-28] MEDS ORDERED: APIXABAN 5 MG TABLET PO SCH (09:00)
--- NOTE | 2022-04-28 09:24 | Electrocardiogram Report ---
Test Reason : Blood Pressure : / mmHG Vent. Rate : 099 BPM Atrial Rate : 163 BPM P-R Int : 000 ms QRS Dur : 098 ms QT Int : 386 ms P-R-T Axes : 000 -56 033 degrees QTc Int : 495 ms Poor data quality, interpretation may be adversely affected Left anterior fascicular block Incomplete right bundle branch block ST depression in Anterolateral leads Abnormal ECG When compared with ECG of 04-FEB-2022 00:13, HR has increased by 35 bpm Sinus rhythm no longer present ST depression in Anterolateral leads now present Confirmed by Steve Lawrence ([id number]) on 04/28/2022 9:24:16 AM Referred By: REFERRED SELF Confirmed By:Steve Lawrence
--- NOTE | 2022-04-28 13:38 | Discharge Summary ---
Date of Service April 28, 2022 Admission HPI Per Admitting Provider Darlin Courtney is a 72yo female with PMHx significant for paroxysmal a-fib (on Eliquis and Flecainide 300mg PRN), HLD and vitamin B12 deficiency, who presented to [facility] ED on 04/28 for concern of a "fast heart rate over 200". Patient was lying in bed when she started to have palpitations. She checked her HR and was over 200 so took Flecainide 300mg PO x1 at ~0245 this morning. Her symptoms subsequently resolved. Denies chest pain, SOB, syncope, near-syncope, diaphoresis. Denies recent illnesses. Denies fever/chills. Feels well overall. In the ED the patient's HR was in the 80s and she was hemodynamically stable on room air. EKG showed Mobitz I 2nd degree AV block (Wenckebach) with PACs/PVCs as well as incomplete RBBB. Also with mild inferior ST depressions. And with QTc 495ms. Of note patient's last EKG on 02/04/2022 also shows incomplete RBBB as well as 1st degree AV block. Labs significant for K 3.3. Otherwise CBC/CMP/hsTroponin all WNL. CXR without acute cardiopulmonary process. COVID-19 negative. Principal Diagnosis afib w/ RVR, atrial flutter Discharge Exam General: A&Ox3. NAD. Cooperative. HEENT: Atraumatic, normocephalic. Pulm: CTAB A&P. -wheezes, -rales, -rhonchi. Symmetrical chest rise. No increase work of breathing. No respiratory distress. Cardiac: RRR, -mrg. Radial pulses intact and symmetrical. No LE edema. Abdominal: soft, non-tender, non-distended Skin: warm, dry, no rash Discharge Data Allergies Allergy/AdvReac Type Severity Reaction Status Date / Time cat dander Allergy Unknown upper resp Verified 04/17/22 14:14 symptoms dog dander Allergy Unknown upper resp Verified 04/17/22 14:14 symptoms fluconazole Allergy Unknown PT NOT Verified 04/17/22 14:14 SURE IF ALLERGIC- ? Rash, headaches grass pollen Allergy Unknown upper resp Verified 04/17/22 14:14 symptoms house dust Allergy Unknown upper resp Verified 04/17/22 14:14 symptoms Iodinated Contrast Media Allergy Unknown PT REPORTS Verified 04/17/22 14:14 [Iodinated Contrast- Oral ? IODINE and IV Dye] ALLERGY - Hives - SEE NOTES pollen extracts Allergy Unknown coughing Verified 04/17/22 14:14 tree and shrub pollen Allergy Unknown upper resp Verified 04/17/22 14:14 symptoms METHIALATE Allergy Unknown SKIN BURN Uncoded 04/17/22 14:14 (TYPE OF MECURCROME) SHOT FOR PENUMONIA INFECTION AdvReac Unknown NAUSEA - Uncoded 04/17/22 14:14 SEE NOTES Consultations 04/28/22 04:50 ED Decision to Admit Stat 04/28/22 05:56 Consult Cardiology Routine Ordered Studies Laboratory Results WBC 5.78 K/ul (4.8-10.8) 04/28/22 03:45 RBC 4.41 M/uL (3.93-5.22) 04/28/22 03:45 Hgb 14.5 g/dl (12.0-16.0) 04/28/22 03:45 Hct 44.6 % (34.1-44.9) 04/28/22 03:45 MCV 101.1 fL (80.0-100.0) H 04/28/22 03:45 MCH 32.9 pg (25.0-34.0) 04/28/22 03:45 MCHC 32.5 g/dL (32.0-36.0) 04/28/22 03:45 RDW Std Deviation 49.2 fL (36.4-46.3) H 04/28/22 03:45 RDW Coeff of Frandy 13.1 % (11.5-14.5) 04/28/22 03:45 Plt Count 168 K/uL (130-400) 04/28/22 03:45 MPV 9.0 fL (9.4-12.3) L 04/28/22 03:45 Immature Gran % (Auto) 0.2 % 04/28/22 03:45 Neut % (Auto) 51.1 % 04/28/22 03:45 Lymph % (Auto) 35.8 % 04/28/22 03:45 [place] % (Auto) 7.6 % 04/28/22 03:45 Eos % (Auto) 4.8 % 04/28/22 03:45 Baso % (Auto) 0.5 % 04/28/22 03:45 Neut # (Auto) 2.95 K/uL (1.4-6.5) 04/28/22 03:45 Lymph # (Auto) 2.07 K/uL (1.2-3.4) 04/28/22 03:45 [place] # (Auto) 0.44 K/uL (0.24-0.82) 04/28/22 03:45 Eos # (Auto) 0.28 K/uL (0-0.50) 04/28/22 03:45 Baso # (Auto) 0.03 K/uL (0-0.2) 04/28/22 03:45 Immature Gran # (Auto) 0.01 K/uL (0.00-0.02) 04/28/22 03:45 PT 10.8 Seconds (9.0-12.0) 04/28/22 03:45 INR 1.0 (0.9-1.1) 04/28/22 03:45 APTT 27.9 Seconds (21.0-31.0) 04/28/22 03:45 PTT Ratio 1.0 04/28/22 03:45 Sodium 143 mmol/L (136-145) 04/28/22 03:45 Potassium 3.3 mmol/L (3.5-5.1) L 04/28/22 03:45 Chloride 107 mmol/L (98-107) 04/28/22 03:45 Carbon Dioxide 29 mmol/L (21-32) 04/28/22 03:45 Anion Gap 7 (3-11) 04/28/22 03:45 BUN 18 mg/dl (6-23) 04/28/22 03:45 Creatinine 0.70 mg/dl (0.6-1.2) 04/28/22 03:45 Est Cr Clr Drug Dosing 71.4 ml/min 04/28/22 03:45 Est GFR ( Amer) 98.9 ml/min 04/28/22 03:45 Est GFR (Non-Af Amer) 85.4 ml/min 04/28/22 03:45 BUN/Creatinine Ratio 25.7 (10-20) H 04/28/22 03:45 Glucose 116 mg/dl (70-99(Fasting)) H 04/28/22 03:45 Calcium 10.2 mg/dl (8.5-10.1) H 04/28/22 03:45 Magnesium 2.0 mg/dl (1.7-2.4) 04/28/22 03:45 Total Bilirubin 0.5 mg/dl (0.2-1.0) 04/28/22 03:45 AST 28 U/L (13-39) 04/28/22 03:45 ALT 21 U/L (7-52) 04/28/22 03:45 Alkaline Phosphatase 76 U/L (34-104) 04/28/22 03:45 Troponin I High Sens 20.8 pg/ml (0-14) H 04/28/22 11:54 Total Protein 7.2 gm/dl (6.0-8.3) 04/28/22 03:45 Albumin 4.6 gm/dl (3.4-5.0) 04/28/22 03:45 Globulin 2.6 gm/dl (2.5-4.0) 04/28/22 03:45 Albumin/Globulin Ratio 1.8 (0.9-2) 04/28/22 03:45 SARS-CoV-2, RNA, NAAT NEGATIVE (NEGATIVE) 04/28/22 04:06 Impressions Chest X-Ray 04/28/22 03:34 SINGLE VIEW CHEST CLINICAL HISTORY: Atypical chest pain FINDINGS: An AP, portable, upright chest radiograph is compared to study dated 02/04/2022. The heart is mildly enlarged noting atherosclerotic calcification of the thoracic aorta. The pulmonary vasculature is noncongested. Chronic interstitial thickening similar to previous. There are scattered calcified granulomas and calcified hilar nodes. The lungs and pleural spaces are otherwise clear noting mild bibasilar scarring/atelectasis. No pneumothorax is seen. The skeletal structures are osteopenic. The bony thorax is grossly intact. IMPRESSION: Cardiomegaly with no acute cardiopulmonary abnormality. ACT 112: Negative or not required by law. Electronically signed by: Scott Ortega M.D. 04/28/2022 7:24 AM Hospital Course (1) Atrial fibrillation with rapid ventricular response: Atrial fibrillation with rapid ventricular response Reportedly was tachycardic to "over 200" prior to presentation with chest tightness, which may have represented a-fib with RVR. Symptoms resolved after taking pill in pocket flecainide at home. -Initial EKG: atrial flutter with variable AV block; pt converted to sinus rhythm on her own -Repeat EKG: sinus ulises with 1st deg AV block, no ST depressions -Trops were trending upwards as high as 20. however, likely demand ischemia secondary to arrhythmia - consulted Cardiology -cont. home Eliquis -will begin flecainide 50mg bid going forward -may still have pill in pocket flecainide if goes into afib but should only take 150mg (1 pill) for breakthrough -f/u Dr. Helm in 2-4 weeks Hypokalemia K 3.3 - repleted with k-rider x4. Dyslipidemia Continue home Atorvastatin Vitamin B12 deficiency Continue daily Vitamin B12 supplementation Cognitive impairment Continue home Memantine Constipation Continue home Docusate (2) Hypokalemia: (3) Dyslipidemia: (4) Vitamin B12 deficiency: (5) Cognitive impairment: (6) Constipation: (7) Atrial flutter, paroxysmal: Total Time Total Time Spent Total Time Spent (In Minutes): 35 min Discharge Plan Discharge Items Patient Disposition: Home - Self-Care Reason For Visit: 2ND DEGREE MOBITZ 1 AV BLOCK Discharge Diagnosis: afib w/ RVR, atrial flutter Condition on Discharge: Good Activity: Resume your previous activity Non-emergency contact: Primary Care Provider Call non-emergency contact if: you have any medication questions and your symptoms worsen Follow-up/Referrals: Donald Helm MD [Physician] - (2-4 weeks) Meaghan Collins DO [Primary Care Provider] - Diet: Regular Addtl Attending Provider Instructions: You were admitted to the hospital for A. fib with rapid ventricular rate. It a ppears your rate improved after you took your pill in a pocket flecainide as instructed. You also converted to normal rhythm on your own this morning. We had you seen by our on-call dimension quarry supervisor with the [facility] who you are established with. As discussed, they recommend starting you on a routine daily flecainide regimen at 50 mg twice a day which I will send to your pharmacy. If you do still find yourself going into atrial fibrillation you may still take your as needed flecainide however you only want to take 1 pill which would be 150 mg. As you were, continue your anticoagulation with Eliquis. Follow-up with Dr. Helm in 2 to 4 weeks which we have referred you to. You may also want to follow-up with your primary care provider in the next week. Pending Studies at Discharge: No Stand-Alone Forms: [facility] Medications and DC Order Prescriptions: New flecainide 50 mg tablet 50 mg PO Q12H Qty: 60 0RF Continued Eliquis 5 mg tablet 5 mg PO BID Qty: 60 11RF memantine 5 mg tablet 5 mg PO DAILY Qty: 30 3RF cyanocobalamin (vitamin B-12) 1,000 mcg capsule 1,000 mcg PO DAILY cholecalciferol (vitamin D3) 50 mcg (2,000 unit) capsule 50 mcg PO DAILY docusate sodium [Stool Softener] 100 mg capsule 100 mg PO DAILY atorvastatin 10 mg tablet 10 mg PO HS Changed flecainide 150 mg tablet 150 mg PO ONCE PRN (Reason: rapid heart rate) Qty: 1 0RF Rx Instructions: take 1 tabs at once if you develop symptoms from a rapid heart rate, Discharge Orders: Discharge Order (Routine); Ordered 04/28/22 Ordered By: Hilario Quintero Admission Data Admit Date/Time: 04/28/22 05:12 Attending Provider: Yesi Sandhu Admit Provider: Vince Elizondo Primary Care Provider: Meaghan Collins Other Providers: Buster Klein ; Steve Lawrence Other Interventions: Discharge Summary Assessment (RN) Last Done: 04/28/22 15:02 Supervising Physician Co-Signing Physician Notes Resident Supervision Note: I personally saw and examined the patient. I verified all chahal points and agree with Dr. Quintero with the following exceptions and/or additions: S-patient feeling well. She converted to sinus rhythm and remains in that rhythm. No chest pains or shortness of breath, no palpitations. I discussed her care with the dimension quarry supervisor. O- Vitals reviewed Gen: AAOx3, NAD HEENT: Anicteric sclerae, EOMI CV: RRR no mgr nl S1S2 Pulm: CTAB no wcr Abd: +BS soft NT ND no masses or hernias Ext: No edema, 2+ DP pulses Skin: No rashes, warm/dry Neuro: Full strength throughout Labs, Rads, and ECG reviewed [id number] female here with rapid atrial flutter. She did not have secondary heart block on review of ECG. We will now institute daily antiarrhythmic drug with flecainide 50 Mg p.o. twice daily, continue anticoagulation. Follow-up with cardiology and PCP as an outpatient Stable for discharge to home Resident Activity Tracking Resident Involvement: Resident Care Provided Care Provided: Adult [facility] Medicine
--- NOTE | 2022-04-28 15:35 | Electrocardiogram Report ---
Test Reason : Blood Pressure : / mmHG Vent. Rate : 062 BPM Atrial Rate : 062 BPM P-R Int : 214 ms QRS Dur : 078 ms QT Int : 434 ms P-R-T Axes : 065 -39 058 degrees QTc Int : 440 ms Sinus rhythm with 1st degree A-V block Left axis deviation Abnormal ECG When compared with ECG of 28-APR-2022 03:38, Sinus rhythm has replaced Atrial flutter Vent. rate has decreased BY 37 BPM Incomplete right bundle branch block is no longer Present Confirmed by Steve Lawrence ([id number]) on 04/28/2022 3:34:22 PM Referred By: REFERRED SELF Confirmed By:Steve Lawrence
[2022-04-28] MEDS ORDERED: ATORVASTATIN 10 MG TAB PO SCH (21:00)
--- NOTE | 2022-04-28 22:08 | Billing Data ---
Date of Service April 28, 2022 Coding Level of Care Code 33684 Initial Inpt Care Lvl 3
--- NOTE | 2022-05-03 20:56 | Billing Data ---
Date of Service April 28, 2022 35 minutes of time were spent preparing this discharge and seen the patient [id number]. Coding Level of Care Code D/C DAY MANAGEMENT >30 MINS
== END 2022-04-28 15:53 | disposition home or self-care (01) | DRG 310 ==
LOC: ED 03:20 → INTOOBSV 05:12 → SUATTDRO 05:12 → 2N 05:12